=== PATIENT | female | born 1930 | race Two or more races ===

== ENCOUNTER 2018-10-01 13:31 | Inpatient (IN) | payer OTHER ==
[~2018-10-01] VITALS: Ht 157.5 cm; Wt 58.1 kg
[~2018-10-01 13:31] MED LIST: ATOR40TA68 PO; CALC600T24 PO; CARB1TAB47 PO; CHOL100062 PO; FER325 PO; HEPA500021 IJ; LOSA1TAB22 PO; PANT40TA4 PO; PROP10TA6 PO; SENN-120 PO; SERT50TA6 PO
[2018-10-01 15:30] VITALS: Ht 157.5 cm; Wt 58.1 kg
--- NOTE | 2018-10-01 15:59 | QN ---
Documentation Comment SEEN AND EXAMINED RUBI BAEZ MD Oct 01, 2018 15:59
[2018-10-01] MEDS ORDERED: NACL 0.9% 3 ML SYG IV SCH (16:00)
[2018-10-01] MEDS ORDERED: HYDROCODONE/APAP (5/325) TAB PO PRN (16:00)
[2018-10-01] MEDS ORDERED: ACETAMINOPHEN 325 MG TAB PO PRN (16:00)
[2018-10-01] MEDS ORDERED: ONDANSETRON 4 MG INJ IV PRN (16:00)
[2018-10-01] MEDS ORDERED: DOCUSATE SODIUM 100 MG CAP PO PRN (16:00)
[2018-10-01 16:07] VITALS: BP 119/57; PULSE 88; RESP 18
[2018-10-01] MEDS: CARBIDOPA/LEVODOPA (25/250) TAB PO SCH ×2 (17:00→22:45)
--- NOTE | 2018-10-01 18:59 | HP ---
DATE OF ADMISSION: 10/01/2018 REASON FOR ADMISSION: Transferred from [facility] due to insurance reasons. HISTORY OF PRESENT ILLNESS: This is an 88-year-old female with a past medical history of anemia, hypertension, history of Parkinson's disease who came into the [facility] on 09/27/2018 secondary to worsening abdominal distention and shortness of breath. According to the family the course had been progressive and had been continuous. The pain was present in the right upper quadrant. The patient had mild shortness of breath on exertion. The abdominal distention was getting worse and getting bigger. 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 There, the patient was afebrile. White count was 9.6, hemoglobin 10.2, platelet count of 415. UA was negative. The patient had BUN of 26, creatinine 1.5, calcium 9.3, total protein 6.2, albumin 3.4. UA was done that was negative. Chest x-ray showed left basilar atelectasis or infiltrate with possible pleural effusion. The patient received paracentesis on 09/27/2018 with removal of 4 liters and the patient also received thoracentesis on 09/29/2018 with removal of 1.3 liters. The patient had apparently CA 125 and CA 19 that were elevated. The patient was seen by oncology and the patient was transferred here due to insurance reasons for possible chemo PAST MEDICAL HISTORY: 1. Hypertension. 2. Hyperlipidemia. 3. Parkinson's disease. 4. Anemia. MEDICATIONS: Taking at home: 1. Atorvastatin 10. 2. Calcium carbonate 120 oral b.i.d. 3. Carbidopa/levodopa 1 cap p.o. t.i.d. 4. Cholecalciferol. 5. Iron sulfate. 6. Hydrochlorothiazide. 7. Losartan 12.5 and 50 that was started in [facility]. 8. Pantoprazole 20. 9. Propranolol 10 oral daily. 10. Sertraline 50. SOCIAL HISTORY: No history of smoking, alcohol or any drug use. Currently lives by herself in [place]. The patient is Urdu speaking. FAMILY HISTORY: No history of any cancer. REVIEW OF SYSTEMS: The patient complained of some abdominal distention and some left-sided chest pain after removal of fluid. Denied any headache, any blurry vision, any nausea, vomiting, diarrhea. Denied any hematemesis, any melena, any blood per rectum.PHYSICAL EXAMINATION: VITAL SIGNS: Temperature there 97.2, heart rate 75, respirations 18, blood pressure was 144/65, 91% to 92% on room air. GENERAL: The patient is awake, alert, oriented, does not appear to be in acute distress. NECK: Supple without lymphadenopathy. HEART: Regular rate and rhythm. LUNGS: Decreased breath sounds on the left base. ABDOMEN: Soft, distended, mild fluid wave. EXTREMITIES: There is no edema. NEUROLOGIC: Grossly intact motor and sensory examination. Alert, oriented. DIAGNOSTIC DATA: There, sodium was 137, potassium 3.5, chloride 101, bicarbonate 27, BUN of 22, creatinine came down to 1.1. White count 6.1, hemoglobin 9.4, platelet count 364. 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 ASSESSMENT AND PLAN: This is an 88-year-old female who presented with: 1. Ascites, status post ultrasound-guided paracentesis. 2. Pleural effusion, status post left-sided thoracentesis. 3. Likely new diagnosis of ovarian cancer as per some records. with ascites and pleural effusion with peritoneal carcinomatosis on CT scan 4. Microcytic anemia. 5. Questionable cirrhosis. may be due to ascites?? Per records there but i think its due to maligant ascites due to ovarian cancer 6 hx Parkinson 7 Hypercholestermia PLAN: At this period of time, the patient is here in medicine. Will continue the patient on home medications.Repeat Chest xray and abdominal US We will request all the extensive records from [facility] regarding the tumor markers, CAT scans since the patient only has partial records available. Dr. Guerin has been consulted for oncology consultation. Rest of the treatment will depend of the patient's hospitalization course. Dictated By: RUBI BAEZ RB/JENNIFER Conf#: [id number] DID#: [id number] CC: TEE TORRES MD;*EndCC* MTDD
[2018-10-01 19:27] VITALS: BP 125/60; PULSE 88; RESP 18
[2018-10-01] MEDS: ATORVASTATIN 10 MG TAB PO SCH (20:55)
[2018-10-01] MEDS: FERROUS SULFATE (EC) 325 MG TAB PO SCH (20:55)
[2018-10-01] MEDS: SENNA TAB PO SCH (20:55)
[2018-10-01] MEDS: SERTRALINE 50 MG TAB PO SCH (20:55)
[2018-10-01] MEDS ORDERED: HEPARIN 5,000 UNIT/0.5 ML VIAL SC SCH (22:00)
[2018-10-01] MEDS: CALCIUM CARBONATE 1.25 GM TAB PO SCH (22:44)
[2018-10-01] MEDS: HEPARIN 5,000 UNIT/1 ML VIAL SC SCH (22:47)
[2018-10-02 01:57] VITALS: BP 122/57; PULSE 80; RESP 16
[2018-10-02] MEDS: PANTOPRAZOLE (EC) 40 MG TAB PO SCH (05:40)
[2018-10-02] MEDS: HEPARIN 5,000 UNIT/1 ML VIAL SC SCH (05:42)
[2018-10-02] MEDS ORDERED: PANTOPRAZOLE (EC) 40 MG TAB PO SCH (06:00)
[2018-10-02 07:27] VITALS: BP 116/55; PULSE 80; RESP 19
[2018-10-02] MEDS: CARBIDOPA/LEVODOPA (25/250) TAB PO SCH ×3 (08:13→21:00)
[2018-10-02] MEDS: CALCIUM CARBONATE 1.25 GM TAB PO SCH ×2 (08:13→21:00)
[2018-10-02] MEDS: FERROUS SULFATE (EC) 325 MG TAB PO SCH (08:13)
[2018-10-02] MEDS: SENNA TAB PO SCH ×2 (08:13→21:00)
[2018-10-02] MEDS: CHOLECALCIFEROL 1,000 UNIT TAB PO SCH (08:13)
[2018-10-02] MEDS: PROPRANOLOL 10 MG TAB PO SCH (08:14)
[2018-10-02] MEDS ORDERED: LOSARTAN 50 MG TAB PO SCH (09:00)
[2018-10-02] MEDS ORDERED: HYDROCHLOROTHIAZIDE 12.5 MG CAP PO SCH (09:00)
[2018-10-02] MEDS ORDERED: MAGNESIUM SULFATE 4 GM/100 ML 100 ML IVPB ONE (12:00)
--- NOTE | 2018-10-02 12:40 | PN ---
Date/Time of Note Date/Time of Note DATE: 10/02/18 TIME: 12:36 Assessment/Plan VTE Prophylaxis Risk score (from Ns)>0 risk: 5 SCD applied (from Ns): Yes Pharmacological prophylaxis: NA/contraindicated Pharm contraindication: low risk/ambulating Lines/Catheters IV C[facility]ter Type [facility]from [facility] Urinary Cath still in place: No Assessment/Plan Assessment/Plan This is an 88-year-old female who presented with: 1. Ascites, status post ultrasound-guided paracentesis. 2. Pleural effusion, status post left-sided thoracentesis. 3. Likely new diagnosis of ovarian cancer as per some records. with elevated CA markers 4. Microcytic anemia. 5. hx parkinson 6 hypercholestermia 7 Hypomagnesemia Plan - fluid restriction - iv lasix - chest xray reviewed > will call pulm - will request all records from [facility] MG - possibel [facility] ju[facility]ino, hold fe and heparin, recheck Hb - dr henry to see patient today ?chemo Result Diagram: 10/02/18 0431 10/02/18 0431 Results 24hrs Laboratory Tests Test 10/01/18 16:48 10/02/18 04:31 10/02/18 08:48 Sodium Level 133 L 134 L Potassium Level 4.1 3.5 Chloride Level 95 L 97 Carbon Dioxide Level 31 31 Anion Gap 7 6 Blood Urea Nitrogen 13 12 Creatinine 0.68 0.63 Est Glomerular Filtrat Rate mL/min Glucose Level 144 115 Calcium Level 9.3 9.0 Total Bilirubin 0.3 Direct Bilirubin 0.00 Indirect Bilirubin 0.3 Aspartate Amino Transf (AST/SGOT) 21 Alanine Aminotransferase (ALT/SGPT) 13 Alkaline Phosphatase 61 Total Protein 6.0 L Albumin 3.0 L Globulin 3.00 Albumin/Globulin Ratio 1.00 Carcinoembryonic Antigen 0.9 CA 19-9 Antigen 16.0 CA 125 Antigen 1100.0 H White Blood Count 8.7 Red Blood Count 4.20 Hemoglobin 9.6 L Hematocrit 29.8 L Mean Corpuscular Volume 71.0 L Mean Corpuscular Hemoglobin 22.9 L Mean Corpuscular Hemoglobin Concent 32.2 Red Cell Distribution Width 15.2 H Platelet Count 386 Mean Platelet Volume 9.5 Immature Granulocytes % 0.700 H Neutrophils % 73.3 Lymphocytes % 11.6 L Monocytes % 11.7 H Eosinophils % 2.2 Basophils % 0.5 Nucleated Red Blood Cells % 0.0 Immature Granulocytes # 0.060 H Neutrophils # 6.4 Lymphocytes # 1.0 Monocytes # 1.0 H Eosinophils # 0.2 Basophils # 0.0 Nucleated Red Blood Cells # 0.0 Phosphorus Level 4.6 Magnesium Level 1.4 L Lab Scanned Report REFERENCE LAB Subjective 24 Hr Interval Summary Free Text/Dictation Gets little sob at times small black stool today Exam/Review of Systems Exam Vitals Vital Signs Date Temp Pulse Resp B/P (MAP) Pulse Ox O2 O2 Flow FiO2 Time Delivery Rate 10/02/18 98.3 80 19 116/55 96 Room Air 07:27 (75) Intake and Output 10/01/18 10/01/18 10/02/18 1515:00 23:00 07:00 IntakeIntake Total 120 ml 2400 ml BalanceBalance 120 ml 2400 ml Exam GENERAL: The patient is awake, alert, oriented, does not appear to be in acute distress. NECK: Supple without lymphadenopathy. HEART: Regular rate and rhythm. LUNGS: Decreased breath sounds on the left base. ABDOMEN: Soft, distended, mild fluid wave. EXTREMITIES: There is no edema. NEUROLOGIC: Grossly intact motor and sensory examination. Alert, oriented. Results Results 24hrs Laboratory Tests Test 10/01/18 16:48 10/02/18 04:31 10/02/18 08:48 Sodium Level 133 L 134 L Potassium Level 4.1 3.5 Chloride Level 95 L 97 Carbon Dioxide Level 31 31 Anion Gap 7 6 Blood Urea Nitrogen 13 12 Creatinine 0.68 0.63 Est Glomerular Filtrat Rate mL/min Glucose Level 144 115 Calcium Level 9.3 9.0 Total Bilirubin 0.3 Direct Bilirubin 0.00 Indirect Bilirubin 0.3 Aspartate Amino Transf (AST/SGOT) 21 Alanine Aminotransferase (ALT/SGPT) 13 Alkaline Phosphatase 61 Total Protein 6.0 L Albumin 3.0 L Globulin 3.00 Albumin/Globulin Ratio 1.00 Carcinoembryonic Antigen 0.9 CA 19-9 Antigen 16.0 CA 125 Antigen 1100.0 H White Blood Count 8.7 Red Blood Count 4.20 Hemoglobin 9.6 L Hematocrit 29.8 L Mean Corpuscular Volume 71.0 L Mean Corpuscular Hemoglobin 22.9 L Mean Corpuscular Hemoglobin Concent 32.2 Red Cell Distribution Width 15.2 H Platelet Count 386 Mean Platelet Volume 9.5 Immature Granulocytes % 0.700 H Neutrophils % 73.3 Lymphocytes % 11.6 L Monocytes % 11.7 H Eosinophils % 2.2 Basophils % 0.5 Nucleated Red Blood Cells % 0.0 Immature Granulocytes # 0.060 H Neutrophils # 6.4 Lymphocytes # 1.0 Monocytes # 1.0 H Eosinophils # 0.2 Basophils # 0.0 Nucleated Red Blood Cells # 0.0 Phosphorus Level 4.6 Magnesium Level 1.4 L Lab Scanned Report REFERENCE LAB Medications Medication Current Medications IV Flush (NS 3 ml) 3 ml PER PROTOCOL IV ; Start 10/01/18 at 16:00 Ondansetron HCl (Zofran Inj) 4 mg Q6H PRN IV NAUSEA/VOMITING; Start 10/01/18 at 16:00 Acetaminophen (Tylenol Tab) 650 mg Q6H PRN PO .PAIN 1-3 OR TEMP; Start 10/01/18 at 16:00 Acetaminophen/ Hydrocodone Bitart ([place] (5/325)) 1 tab Q6H PRN PO .MOD PAIN 4- 6; Start 10/01/18 at 16:00 Docusate Sodium (Colace) 100 mg Q12H PRN PO .CONSTIPATION; Start 10/01/18 at 16:00 Pantoprazole (Protonix Tab) 40 mg DAILY@06 PO Last administered on 10/02/18at 05:40; Admin Dose 40 MG; Start 10/02/18 at 06:00 Atorvastatin Calcium (Lipitor) 10 mg DAILY@21 PO Last administered on 10/01/18at 20:55; Admin Dose 10 MG; Start 10/01/18 at 21:00 Cholecalciferol (Vitamin D) 5,000 unit DAILY PO Last administered on 10/02/18at 08:13; Admin Dose 5,000 UNIT; Start 10/02/18 at 09:00 Propranolol HCl (Inderal) 10 mg DAILY PO Last administered on 10/02/18at 08:14; Admin Dose 10 MG; Start 10/02/18 at 09:00 Senna (Senokot) 1 tab BID PO Last administered on 10/02/18at 08:13; Admin Dose 1 TAB; Start 10/01/18 at 21:00 Sertraline HCl (Zoloft) 50 mg QHS PO Last administered on 10/01/18 20:55; Admin Dose 50 MG; Start 10/01/18 at 21:00 Calcium Carbonate (Oyster Shell Calcium) 1.25 gm BID PO Last administered on 10/02/18 08:13; Admin Dose 1.25 GM; Start 10/01/18 at 21:00 Carbidopa/Levodopa (Sinemet (25/ 250)) 1 tab TID PO Last administered on 10/02/18 08:13; Admin Dose 1 TAB; Start 10/01/18 at 17:00 Magnesium Sulfate 100 ml @ 25 mls/hr ONCE ONCE IVPB Last administered on 10/02/18 12:24; Admin Dose 25 MLS/HR; Start 10/02/18 at 12:00; Stop 10/02/18 at 15:59 Furosemide (Lasix) 20 mg DAILY@0600 IV ; Start 10/02/18 at 12:30 RUBI BAEZ MD Oct 02, 2018 12:40
[2018-10-02] MEDS: FUROSEMIDE 20 MG INJ IV SCH (13:08)
--- NOTE | 2018-10-02 13:59 | CONS ---
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 -I have spoke at length to the patient's [facility] ON[facility] who states that the pt was offered low dose chemotherapy at [facility] with the option of perusing optimal debulking surgery after 3 cycles of neoadjuvant chemotherapy -family to decide if they want to pursue chemotherapy -although she does have a fairly good functional status, I did explain that chemotherapy would be lifelong and the goal would be to control the disease since it is not a curative cancer #Microcytic anemia 2/2 iron deficiency -simmons tart IV iron #Pleural effusion -this is likely malignant and will keep reaccumulating if they do not start chemotherapy -if she decides against chemotherapy, I would recommend a Pleurx catheter to be placed Consultation Date/Type/Reason Admit Date/Time Oct 01, 2018 at 16:23 Date of Consultation: Oct 02, 2018 Type of Consult oncology Reason for Consultation ovarian cancer Requesting Provider: RUBI BAEZ MD Date/Time of Note DATE: 10/02/18 TIME: 11:32 Hx of Present Illness MS Mott is a pleasant 88 yo female with new diagnosis of metastatic ovarian cancer. She initially presented to [facility] last week with complaints of 4 weeks of abdominal pain and tightness as well as dyspnea on exertion. 09/27/2018 CT A/P reveals large ascites with peritoneal enhancement and peritoneal carcinomatosis. Also seen is a moderate left sided pleural effusion. Pt then underwent a paracentesis and left sided thoracentesis. Cytology presumably revealed ovarian cancer . Pt was offered chemotherapy at [facility] but was then transferred here for further workup. Constitutional: diaphoresis Eyes: no complaints ENT: no complaints Respiratory: cough, pleuritic pain, shortness of breath Cardiovascular: no complaints Gastrointestinal: decreased appetite Genitourinary: no complaints Musculoskeletal: back pain, bone/joint pain Skin: no complaints Neurologic: no complaints Lymphatic: no complaints Past Medical History 1. Hypertension. 2. Hyperlipidemia. 3. Parkinson's disease. 4. Anemia. Home Meds Reported Medications Losartan-Hydrochlorothiazide (Losartan-HCTZ) 50-12.5 Mg Tab, 1 TAB PO DAILY, TAB 10/01/18 Sertraline Hcl* (Sertraline Hcl*) 50 Mg Tablet, 50 MG PO QHS, #30 TAB 10/01/18 Sennosides* (Senna Lax*) 8.6 Mg Tablet, 1 TAB PO BID, TAB 10/01/18 Propranolol Hcl* (Propranolol Hcl*) 10 Mg Tablet, 10 MG PO DAILY, TAB 10/01/18 Pantoprazole* (Pantoprazole*) 40 Mg Tablet.dr, 40 MG PO DAILY, TAB 10/01/18 Heparin Sodium,Porcine/Pf (HEPARIN SOD 5,000 UNIT/ 0.5 ML) 5,000 Unit/0.5 Ml Vial, 5000 UNIT IJ Q8, VIAL 10/01/18 Ferrous Sulfate* (Ferrous Sulfate*) 325 Mg Tabec, 325 MG PO BID, TAB 10/01/18 Cholecalciferol* (Vitamin D3*) 1,000 Unit Tablet, 5000 UNIT PO DAILY, TAB 10/01/18 Carbidopa/Levodopa (CARBIDOPA-LEVO 25-250 MG ODT) 1 Each Tab.rapdis, 1 TAB PO TI D, #90 TAB 10/01/18 Calcium Carbonate* (Calcium Carbonate*) 600 MG Ca Tab, 500 MG PO BID, TAB 10/01/18 Atorvastatin* (Atorvastatin*) 40 Mg Tablet, 10 MG PO QHS, #30 TAB 10/01/18 Medications Current Medications IV Flush (NS 3 ml) 3 ml PER PROTOCOL IV ; Start 10/01/18 at 16:00 Ondansetron HCl (Zofran Inj) 4 mg Q6H PRN IV NAUSEA/VOMITING; Start 10/01/18 at 16:00 Acetaminophen (Tylenol Tab) 650 mg Q6H PRN PO .PAIN 1-3 OR TEMP; Start 10/01/18 at 16:00 Acetaminophen/ Hydrocodone Bitart ([place] (5/325)) 1 tab Q6H PRN PO .MOD PAIN 4- 6; Start 10/01/18 at 16:00 Docusate Sodium (Colace) 100 mg Q12H PRN PO .CONSTIPATION; Start 10/01/18 at 16:00 Pantoprazole (Protonix Tab) 40 mg DAILY@06 PO Last administered on 10/02/18at 05 :40; Admin Dose 40 MG; Start 10/02/18 at 06:00 Atorvastatin Calcium (Lipitor) 10 mg DAILY@21 PO Last administered on 8/5/19at 20:55; Admin Dose 10 MG; Start 10/01/18 at 21:00 Cholecalciferol (Vitamin D) 5,000 unit DAILY PO Last administered on 10/02/18 08:13; Admin Dose 5,000 UNIT; Start 10/02/18 at 09:00 Ferrous Sulfate (Ferrous Sulfate (Ec)) 325 mg BID PO Last administered on 10/02/18 08:13; Admin Dose 325 MG; Start 10/01/18 at 21:00 Propranolol HCl (Inderal) 10 mg DAILY PO Last administered on 10/02/18 08:14; Admin Dose 10 MG; Start 10/02/18 at 09:00 Senna (Senokot) 1 tab BID PO Last administered on 10/02/18 08:13; Admin Dose 1 TAB; Start 10/01/18 at 21:00 Sertraline HCl (Zoloft) 50 mg QHS PO Last administered on 10/01/18 20:55; Admin Dose 50 MG; Start 10/01/18 at 21:00 Calcium Carbonate (Oyster Shell Calcium) 1.25 gm BID PO Last administered on 10/02/18 08:13; Admin Dose 1.25 GM; Start 10/01/18 at 21:00 Carbidopa/Levodopa (Sinemet (25/ 250)) 1 tab TID PO Last administered on 10/02/18 at 08:13; Admin Dose 1 TAB; Start 10/01/18 at 17:00 Hydrochlorothiazide (Hydrochlorothiazide) 12.5 mg DAILY PO Last administered on 10/02/18 08:14; Admin Dose 12.5 MG; Start 10/02/18 at 09:00 Losartan Potassium (Cozaar) 50 mg DAILY PO Last administered on 10/02/18 08:14; Admin Dose 50 MG; Start 10/02/18 at 09:00 Heparin Sodium (Porcine) (Heparin (5000 Units/1ml)) 5,000 unit Q8 SC Last administered on 10/02/18 05:42; Admin Dose 5,000 UNIT; Start 10/01/18 at 22:30 Magnesium Sulfate 100 ml @ 25 mls/hr ONCE ONCE IVPB ; Start 10/02/18 at 12:00; Stop 10/02/18 at 15:59 Allergies: Coded Allergies: No Known Allergy (Unverified , 10/01/18) Past Surgical History Past Surgical Hx: no surgical history Family History Significant Family History: no pertinent family hx Social History Alcohol Use: none Smoking Status: Never smoker Drug Use: none Exam/Review of Systems Exam Vitals Vital Signs Date Temp Pulse Resp B/P (MAP) Pulse Ox O2 O2 Flow FiO2 Time Delivery Rate 10/02/18 98.3 80 19 116/55 96 Room Air 07:27 (75) Intake and Output 10/01/18 10/01/18 10/02/18 1515:00 23:00 07:00 IntakeIntake Total 120 ml 2400 ml BalanceBalance 120 ml 2400 ml Constitutional: alert, oriented, distress, frail Psych: anxiety, confusion, depression Head: normocephalic Eyes: nl conjunctiva ENMT: nl external ears & nose Neck: supple Respiratory: crackles/rales, diminished breath sounds Cardiovascular: regular rate and rhythm Gastrointestinal: soft, ascites Musculoskeletal: swelling Results Result Diagram: 10/02/18 0431 10/02/18 0431 Results 24hrs Laboratory Tests Test 10/01/18 16:48 10/02/18 04:31 10/02/18 08:48 Sodium Level 133 L 134 L Potassium Level 4.1 3.5 Chloride Level 95 L 97 Carbon Dioxide Level 31 31 Anion Gap 7 6 Blood Urea Nitrogen 13 12 Creatinine 0.68 0.63 Est Glomerular Filtrat Rate mL/min Glucose Level 144 115 Calcium Level 9.3 9.0 Total Bilirubin 0.3 Direct Bilirubin 0.00 Indirect Bilirubin 0.3 Aspartate Amino Transf (AST/SGOT) 21 Alanine Aminotransferase (ALT/SGPT) 13 Alkaline Phosphatase 61 Total Protein 6.0 L Albumin 3.0 L Globulin 3.00 Albumin/Globulin Ratio 1.00 Carcinoembryonic Antigen 0.9 CA 19-9 Antigen 16.0 CA 125 Antigen 1100.0 H White Blood Count 8.7 Red Blood Count 4.20 Hemoglobin 9.6 L Hematocrit 29.8 L Mean Corpuscular Volume 71.0 L Mean Corpuscular Hemoglobin 22.9 L Mean Corpuscular Hemoglobin Concent 32.2 Red Cell Distribution Width 15.2 H Platelet Count 386 Mean Platelet Volume 9.5 Immature Granulocytes % 0.700 H Neutrophils % 73.3 Lymphocytes % 11.6 L Monocytes % 11.7 H Eosinophils % 2.2 Basophils % 0.5 Nucleated Red Blood Cells % 0.0 Immature Granulocytes # 0.060 H Neutrophils # 6.4 Lymphocytes # 1.0 Monocytes # 1.0 H Eosinophils # 0.2 Basophils # 0.0 Nucleated Red Blood Cells # 0.0 Phosphorus Level 4.6 Magnesium Level 1.4 L Lab Scanned Report REFERENCE LAB Medications Medication Current Medications IV Flush (NS 3 ml) 3 ml PER PROTOCOL IV ; Start 10/01/18 at 16:00 Ondansetron HCl (Zofran Inj) 4 mg Q6H PRN IV NAUSEA/VOMITING; Start 10/01/18 at 16:00 Acetaminophen (Tylenol Tab) 650 mg Q6H PRN PO .PAIN 1-3 OR TEMP; Start 10/01/18 at 16:00 Acetaminophen/ Hydrocodone Bitart ([place] (5/325)) 1 tab Q6H PRN PO .MOD PAIN 4- 6; Start 10/01/18 at 16:00 Docusate Sodium (Colace) 100 mg Q12H PRN PO .CONSTIPATION; Start 10/01/18 at 16:00 Pantoprazole (Protonix Tab) 40 mg DAILY@06 PO Last administered on 10/02/18 05:40; Admin Dose 40 MG; Start 10/02/18 at 06:00 Atorvastatin Calcium (Lipitor) 10 mg DAILY@21 PO Last administered on 10/01/18 20:55; Admin Dose 10 MG; Start 10/01/18 at 21:00 Cholecalciferol (Vitamin D) 5,000 unit DAILY PO Last administered on 10/02/18 08:13; Admin Dose 5,000 UNIT; Start 10/02/18 at 09:00 Ferrous Sulfate (Ferrous Sulfate (Ec)) 325 mg BID PO Last administered on 10/02/18 08:13; Admin Dose 325 MG; Start 10/01/18 at 21:00 Propranolol HCl (Inderal) 10 mg DAILY PO Last administered on 10/02/18 08:14; Admin Dose 10 MG; Start 10/02/18 at 09:00 Senna (Senokot) 1 tab BID PO Last administered on 10/02/18 08:13; Admin Dose 1 TAB; Start 10/01/18 at 21:00 Sertraline HCl (Zoloft) 50 mg QHS PO Last administered on 10/01/18 20:55; Admin Dose 50 MG; Start 10/01/18 at 21:00 Calcium Carbonate (Oyster Shell Calcium) 1.25 gm BID PO Last administered on 10/02/18 08:13; Admin Dose 1.25 GM; Start 10/01/18 at 21:00 Carbidopa/Levodopa (Sinemet (25/ 250)) 1 tab TID PO Last administered on 10/02/18 08:13; Admin Dose 1 TAB; Start 10/01/18 at 17:00 Hydrochlorothiazide (Hydrochlorothiazide) 12.5 mg DAILY PO Last administered on 10/02/18 08:14; Admin Dose 12.5 MG; Start 10/02/18 at 09:00 Losartan Potassium (Cozaar) 50 mg DAILY PO Last administered on 10/02/18 08:14; Admin Dose 50 MG; Start 10/02/18 at 09:00 Heparin Sodium (Porcine) (Heparin (5000 Units/1ml)) 5,000 unit Q8 SC Last administered on 10/02/18at 05:42; Admin Dose 5,000 UNIT; Start 10/01/18 at 22:30 Magnesium Sulfate 100 ml @ 25 mls/hr ONCE ONCE IVPB ; Start 10/02/18 at 12:00; Stop 10/02/18 at 15:59 CLEVELAND GROSS M.D. Oct 02, 2018 11:52
[2018-10-02 14:00] VITALS: BP 94/57; PULSE 76; RESP 18
[2018-10-02 20:10] VITALS: BP 102/55; PULSE 84; RESP 18
[2018-10-02] MEDS: ATORVASTATIN 10 MG TAB PO SCH (21:00)
[2018-10-02] MEDS: SERTRALINE 50 MG TAB PO SCH (21:00)
[2018-10-03 01:32] VITALS: BP 111/52; PULSE 74; RESP 18
[2018-10-03] MEDS: FUROSEMIDE 20 MG INJ IV SCH (05:46)
[2018-10-03] MEDS: PANTOPRAZOLE (EC) 40 MG TAB PO SCH (05:46)
[2018-10-03 08:06] VITALS: BP 116/56; PULSE 76; RESP 18
[2018-10-03] MEDS: SENNA TAB PO SCH ×2 (09:14→21:12)
[2018-10-03] MEDS: CHOLECALCIFEROL 1,000 UNIT TAB PO SCH (09:14)
[2018-10-03] MEDS: CARBIDOPA/LEVODOPA (25/250) TAB PO SCH ×3 (09:14→21:11)
[2018-10-03] MEDS: CALCIUM CARBONATE 1.25 GM TAB PO SCH ×2 (09:14→21:11)
[2018-10-03] MEDS: PROPRANOLOL 10 MG TAB PO SCH (09:15)
--- NOTE | 2018-10-03 12:02 | PN ---
Date/Time of Note Date/Time of Note DATE: 10/03/18 TIME: 11:58 Assessment/Plan VTE Prophylaxis Risk score (from Ns)>0 risk: 5 SCD applied (from Nsg): Yes Pharmacological prophylaxis: NA/contraindicated Pharm contraindication: low risk/ambulating Lines/Catheters IV Catheter Type (from [facility]): Saline Lock Urinary Cath still in place: No Assessment/Plan Assessment/Plan This is an 88-year-old female who presented with: 1. Ascites, status post ultrasound-guided paracentesis. Now again reevaluated ascites 2. Pleural effusion, status post left-sided thoracentesis. 3. 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 Microcytic anemia. 5. hx parkinson 6 hypercholestermia 7 Hypomagnesemia Plan - fluid restriction - iv lasix - pUL CONSULT will see -We will again order for paracentesis -spoke to mio Mercado who is coming from [place] and will decide about further options after talking to Dr. henry today - GI/DVT prophylaxsis - dietary consult Result Diagram: 10/02/18 1540 10/02/18 0431 Results 24hrs Laboratory Tests Test 10/02/18 15:40 Hemoglobin 10.1 L Hematocrit 32.7 L Subjective 24 Hr Interval Summary Free Text/Dictation Abdominal distention. Exam/Review of Systems Exam Vitals Vital Signs Date Temp Pulse Resp B/P (MAP) Pulse Ox O2 O2 Flow FiO2 Time Delivery Rate 10/03/18 97.5 76 18 116/56 93 Room Air 08:06 (76) Intake and Output 10/02/18 10/02/18 10/03/18 1515:00 23:00 07:00 IntakeIntake Total 100 ml 300 ml BalanceBalance 100 ml 300 ml Exam GENERAL: The patient is awake, alert, oriented, does not appear to be in acute distress. NECK: Supple without lymphadenopathy. HEART: Regular rate and rhythm. LUNGS: Decreased breath sounds on the left base. ABDOMEN: Soft, distended, mild fluid wave.ASCITES+ EXTREMITIES: There is no edema. NEUROLOGIC: Grossly intact motor and sensory examination. Alert, oriented. Results Results 24hrs Laboratory Tests Test 10/02/18 15:40 Hemoglobin 10.1 L Hematocrit 32.7 L Medications Medication Current Medications IV Flush (NS 3 ml) 3 ml PER PROTOCOL IV ; Start 10/01/18 at 16:00 Ondansetron HCl (Zofran Inj) 4 mg Q6H PRN IV NAUSEA/VOMITING; Start 10/01/18 at 16:00 Acetaminophen (Tylenol Tab) 650 mg Q6H PRN PO .PAIN 1-3 OR TEMP; Start 10/01/18 at 16:00 Acetaminophen/ Hydrocodone Bitart ([place] (5/325)) 1 tab Q6H PRN PO .MOD PAIN 4- 6; Start 10/01/18 at 16:00 Docusate Sodium (Colace) 100 mg Q12H PRN PO .CONSTIPATION; Start 10/01/18 at 16:00 Pantoprazole (Protonix Tab) 40 mg DAILY@06 PO Last administered on 10/03/18 05:46; Admin Dose 40 MG; Start 10/02/18 at 06:00 Atorvastatin Calcium (Lipitor) 10 mg DAILY@21 PO Last administered on 10/02/18 21:00; Admin Dose 10 MG; Start 10/01/18 at 21:00 Cholecalciferol (Vitamin D) 5,000 unit DAILY PO Last administered on 10/03/18 09:14; Admin Dose 5,000 UNIT; Start 10/02/18 at 09:00 Propranolol HCl (Inderal) 10 mg DAILY PO Last administered on 10/03/18 09:15; Admin Dose 10 MG; Start 10/02/18 at 09:00 Senna (Senokot) 1 tab BID PO Last administered on 10/03/18 09:14; Admin Dose 1 TAB; Start 10/01/18 at 21:00 Sertraline HCl (Zoloft) 50 mg QHS PO Last administered on 10/02/18 21:00; Admin Dose 50 MG; Start 10/01/18 at 21:00 Calcium Carbonate (Oyster Shell Calcium) 1.25 gm BID PO Last administered on 10/03/18 09:14; Admin Dose 1.25 GM; Start 10/01/18 at 21:00 Carbidopa/Levodopa (Sinemet (25/ 250)) 1 tab TID PO Last administered on 10/03/18 09:14; Admin Dose 1 TAB; Start 10/01/18 at 17:00 Furosemide (Lasix) 20 mg DAILY@0600 IV Last administered on 10/03/18at 05:46; A dmin Dose 20 MG; Start 10/02/18 at 12:30 RUBI BAEZ MD Oct 03, 2018 12:02
--- NOTE | 2018-10-03 14:45 | CONS ---
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 will send for cytology #Microcytic anemia 2/2 iron deficiency -simmons tart IV iron #Pleural effusion -this is likely malignant and will keep reaccumulating if they do not start chemotherapy -if she decides against chemotherapy, I would recommend a Pleurx catheter to be placed Consultation Date/Type/Reason Admit Date/Time Oct 01, 2018 at 16:23 Initial Consult Date 10/02/18 Type of Consult oncology Reason for Consultation metastatic ovarian cancer Requesting Provider: RUBI BAEZ MD Date/Time of Note DATE: 10/03/18 TIME: 14:43 24 HR Interval Summary Free Text/Dictation pt still very short of breath. scheduled for thoracentesis today Exam/Review of Systems Exam Vitals Vital Signs Date Temp Pulse Resp B/P (MAP) Pulse Ox O2 O2 Flow FiO2 Time Delivery Rate 10/03/18 97.5 76 18 116/56 93 Room Air 08:06 (76) Intake and Output 10/02/18 10/02/18 10/03/18 1515:00 23:00 07:00 IntakeIntake Total 100 ml 300 ml BalanceBalance 100 ml 300 ml Constitutional: alert, oriented, distress, frail Psych: depression Eyes: nl conjunctiva ENMT: nl external ears & nose Neck: supple Respiratory: crackles/rales, diminished breath sounds, intercostal retraction, labored breathing Cardiovascular: regular rate and rhythm Gastrointestinal: soft, ascites Musculoskeletal: nl extremities to inspection Results Result Diagram: 10/02/18 1540 10/02/18 0431 Results 24hrs Laboratory Tests Test 10/02/18 15:40 Hemoglobin 10.1 L Hematocrit 32.7 L Medications Medication Current Medications IV Flush (NS 3 ml) 3 ml PER PROTOCOL IV ; Start 10/01/18 at 16:00 Ondansetron HCl (Zofran Inj) 4 mg Q6H PRN IV NAUSEA/VOMITING; Start 10/01/18 at 16:00 Acetaminophen (Tylenol Tab) 650 mg Q6H PRN PO .PAIN 1-3 OR TEMP; Start 10/01/18 at 16:00 Acetaminophen/ Hydrocodone Bitart ([place] (5/325)) 1 tab Q6H PRN PO .MOD PAIN 4- 6; Start 10/01/18 at 16:00 Docusate Sodium (Colace) 100 mg Q12H PRN PO .CONSTIPATION; Start 10/01/18 at 16:00 Pantoprazole (Protonix Tab) 40 mg DAILY@06 PO Last administered on 10/03/18at 05:46; Admin Dose 40 MG; Start 10/02/18 at 06:00 Atorvastatin Calcium (Lipitor) 10 mg DAILY@21 PO Last administered on 10/02/18at 21:00; Admin Dose 10 MG; Start 10/01/18 at 21:00 Cholecalciferol (Vitamin D) 5,000 unit DAILY PO Last administered on 10/03/18 09:14; Admin Dose 5,000 UNIT; Start 10/02/18 at 09:00 Propranolol HCl (Inderal) 10 mg DAILY PO Last administered on 10/03/18 09:15; Admin Dose 10 MG; Start 10/02/18 at 09:00 Senna (Senokot) 1 tab BID PO Last administered on 10/03/18at 09:14; Admin Dose 1 TAB; Start 10/01/18 at 21:00 Sertraline HCl (Zoloft) 50 mg QHS PO Last administered on 10/02/18 21:00; Admin Dose 50 MG; Start 10/01/18 at 21:00 Calcium Carbonate (Oyster Shell Calcium) 1.25 gm BID PO Last administered on 10/03/18 09:14; Admin Dose 1.25 GM; Start 10/01/18 at 21:00 Carbidopa/Levodopa (Sinemet (25/ 250)) 1 tab TID PO Last administered on 10/03/18at 13:17; Admin Dose 1 TAB; Start 10/01/18 at 17:00 Furosemide (Lasix) 20 mg DAILY@0600 IV Last administered on 10/03/18at 05:46; Admin Dose 20 MG; Start 10/02/18 at 12:30 CLEVELAND GROSS M.D. Oct 03, 2018 14:45
[2018-10-03 15:10] VITALS: BP 114/55; PULSE 81; RESP 18
--- NOTE | 2018-10-03 18:31 | CONS ---
DATE OF ADMISSION: 10/01/2018 DATE OF CONSULTATION: 10/03/2018 REASON FOR CONSULTATION: Shortness of breath. Thank you, Dr. Torres, for this consultation. HISTORY OF PRESENT ILLNESS: This is an unfortunate 88-year-old lady with history of Parkinson's dise ase, hypertension, hyperlipidemia, who presented to [facility] with abdominal pain and distent ion, found to have ascites with pleural effusion and peritoneal carcinomatosis. The patient was eval uated by Hematology/Oncology who recommended initiation of chemotherapy. The patient transferred to [facility] pending initiation. PAST MEDICAL HISTORY: As above. MEDICATIONS: Per chart. ALLERGIES: NONE. SOCIAL HISTORY: She is a nonsmoker, no alcohol, no history of drug use. FAMILY HISTORY: Noncontributory. SYSTEMS REVIEW: A 12-point review of systems was negative other than that mentioned above. PHYSICAL EXAMINATION: GENERAL: Well-nourished, well-developed lady, comfortable at rest, talking in full and complete sent ences. No respiratory distress. VITAL SIGNS: Temperature 98, pulse is 81, blood pressure 114/55, O2 saturation 94% on room air. NECK: Supple. No JVD or lymphadenopathy. CARDIAC: S1, S2, no added sounds or murmurs. CHEST: Diminished air entry bilaterally. ABDOMEN: Soft, nontender. No guarding or rebound. EXTREMITIES: Soft, no edema. NEUROLOGIC: Generalized weakness. No focal deficits. LABORATORY DATA: White count 8.7, hemoglobin 9.6, platelets 386. BUN 12, creatinine 0.63. INR 0.95 . DIAGNOSTIC DATA: Chest x-ray was reviewed, showed small left effusion with atelectasis. IMPRESSION AND PLAN: 1. Peritoneal carcinomatosis. 2. Status post pleural effusion. 3. Metastatic ovarian cancer per cytology. 4. History of Parkinson's disease. PLAN: 1. No need for thoracentesis at present. 2. Case was discussed with hematology/oncology regarding initiation of chemotherapy. 3. Status post paracentesis today. Dictated By: LEIGHANN DIAS MD SV/JENNIFER Conf#: [id number] DID#: [id number] CC: TEE TORRES MD;*EndCC*
[2018-10-03 19:20] VITALS: BP 100/47; PULSE 82; RESP 18
[2018-10-03] MEDS: SERTRALINE 50 MG TAB PO SCH (21:11)
[2018-10-03] MEDS: ATORVASTATIN 10 MG TAB PO SCH (21:11)
[2018-10-04 02:10] VITALS: BP 127/60; PULSE 75; RESP 18
[2018-10-04] MEDS: PANTOPRAZOLE (EC) 40 MG TAB PO SCH (05:41)
[2018-10-04] MEDS: FUROSEMIDE 20 MG INJ IV SCH (05:43)
[2018-10-04 05:46] VITALS: BP 127/59; PULSE 77
[2018-10-04 07:38] VITALS: BP 133/60; PULSE 84; RESP 18
[2018-10-04] MEDS: CALCIUM CARBONATE 1.25 GM TAB PO SCH ×2 (09:00→20:33)
[2018-10-04] MEDS: CHOLECALCIFEROL 1,000 UNIT TAB PO SCH (09:00)
[2018-10-04] MEDS: CARBIDOPA/LEVODOPA (25/250) TAB PO SCH ×3 (09:00→20:35)
[2018-10-04] MEDS: SENNA TAB PO SCH ×2 (09:00→20:34)
[2018-10-04] MEDS: PROPRANOLOL 10 MG TAB PO SCH (09:01)
--- NOTE | 2018-10-04 09:37 | PN ---
Date/Time of Note Date/Time of Note DATE: 10/04/18 TIME: 09:37 Assessment/Plan VTE Prophylaxis Risk score (from [facility])>0 risk: 6 SCD applied (from [facility]): Yes Pharmacological prophylaxis: NA/contraindicated Pharm contraindication: low risk/ambulating Lines/Catheters IV Catheter Type (from [facility]): Saline Lock Urinary Cath still in place: No Assessment/Plan Assessment/Plan s is an 88-year-old female who presented with: 1. Ascites, status post ultrasound-guided paracentesis. Now again reevaluated ascites 2. Pleural effusion, status post left-sided thoracentesis. 3. 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 Microcytic anemia. 5. hx parkinson 6 hypercholestermia 7 Hypomagnesemia Plan - fluid restriction - iv lasix - pUL CONSULT will see, no need of thoracentesis -We will again order for paracentesis> not enough fluid to drain -chemo per Dr Guerin in [place] - GI/DVT prophylaxsis - dietary consult Result Diagram: 10/04/18 0452 10/04/18 0452 Results 24hrs Laboratory Tests Test 10/03/18 14:08 10/04/18 04:52 Prothrombin Time 12.8 Prothrombin Time Ratio 1.0 INR International Normalized Ratio 0.95 White Blood Count 7.7 Red Blood Count 4.30 Hemoglobin 9.6 L Hematocrit 31.2 L Mean Corpuscular Volume 72.6 L Mean Corpuscular Hemoglobin 22.3 L Mean Corpuscular Hemoglobin Concent 30.8 L Red Cell Distribution Width 15.6 H Platelet Count 407 Mean Platelet Volume 9.3 Immature Granulocytes % 0.900 H Neutrophils % 72.9 Lymphocytes % 11.9 L Monocytes % 11.7 H Eosinophils % 2.2 Basophils % 0.4 Nucleated Red Blood Cells % 0.0 Immature Granulocytes # 0.070 H Neutrophils # 5.6 Lymphocytes # 0.9 Monocytes # 0.9 Eosinophils # 0.2 Basophils # 0.0 Nucleated Red Blood Cells # 0.0 Sodium Level 132 L Potassium Level 3.5 Chloride Level 94 L Carbon Dioxide Level 33 H Anion Gap 5 Blood Urea Nitrogen 20 Creatinine 0.83 Est Glomerular Filtrat Rate mL/min Glucose Level 108 Calcium Level 8.6 Phosphorus Level 4.7 Magnesium Level 1.8 Subjective 24 Hr Interval Summary Free Text/Dictation spoke to The telemarketing sales representative Rogelio at bedside she denies any shortness of breath any abdominal pain Exam/Review of Systems Exam Vitals Vital Signs Date Temp Pulse Resp B/P (MAP) Pulse Ox O2 O2 Flow FiO2 Time Delivery Rate 10/04/18 98.3 84 18 133/60 99 Room Air 07:38 (84) Intake and Output 10/03/18 10/03/18 10/04/18 1414:59 22:59 06:59 IntakeIntake Total 480 ml 290 ml BalanceBalance 480 ml 290 ml Exam xam GENERAL: The patient is awake, alert, oriented, does not appear to be in acute distress. NECK: Supple without lymphadenopathy. HEART: Regular rate and rhythm. LUNGS: Decreased breath sounds on the left base. ABDOMEN: Soft, distended, mild fluid wave.ASCITES+ EXTREMITIES: There is no edema. NEUROLOGIC: Grossly intact motor and sensory examination. Alert, oriented. Results Results 24hrs Laboratory Tests Test 10/03/18 14:08 10/04/18 04:52 Prothrombin Time 12.8 Prothrombin Time Ratio 1.0 INR International Normalized Ratio 0.95 White Blood Count 7.7 Red Blood Count 4.30 Hemoglobin 9.6 L Hematocrit 31.2 L Mean Corpuscular Volume 72.6 L Mean Corpuscular Hemoglobin 22.3 L Mean Corpuscular Hemoglobin Concent 30.8 L Red Cell Distribution Width 15.6 H Platelet Count 407 Mean Platelet Volume 9.3 Immature Granulocytes % 0.900 H Neutrophils % 72.9 Lymphocytes % 11.9 L Monocytes % 11.7 H Eosinophils % 2.2 Basophils % 0.4 Nucleated Red Blood Cells % 0.0 Immature Granulocytes # 0.070 H Neutrophils # 5.6 Lymphocytes # 0.9 Monocytes # 0.9 Eosinophils # 0.2 Basophils # 0.0 Nucleated Red Blood Cells # 0.0 Sodium Level 132 L Potassium Level 3.5 Chloride Level 94 L Carbon Dioxide Level 33 H Anion Gap 5 Blood Urea Nitrogen 20 Creatinine 0.83 Est Glomerular Filtrat Rate mL/min Glucose Level 108 Calcium Level 8.6 Phosphorus Level 4.7 Magnesium Level 1.8 Medications Medication Current Medications IV Flush (NS 3 ml) 3 ml PER PROTOCOL IV ; Start 10/01/18 at 16:00 Ondansetron HCl (Zofran Inj) 4 mg Q6H PRN IV NAUSEA/VOMITING; Start 10/01/18 at 16:00 Acetaminophen (Tylenol Tab) 650 mg Q6H PRN PO .PAIN 1-3 OR TEMP; Start 10/01/18 at 16:00 Acetaminophen/ Hydrocodone Bitart ([place] (5/325)) 1 tab Q6H PRN PO .MOD PAIN 4- 6; Start 10/01/18 at 16:00 Docusate Sodium (Colace) 100 mg Q12H PRN PO .CONSTIPATION; Start 10/01/18 at 16:00 Pantoprazole (Protonix Tab) 40 mg DAILY@06 PO Last administered on 10/04/18 05:41; Admin Dose 40 MG; Start 10/02/18 at 06:00 Atorvastatin Calcium (Lipitor) 10 mg DAILY@21 PO Last administered on 10/03/18 21:11; Admin Dose 10 MG; Start 10/01/18 at 21:00 Cholecalciferol (Vitamin D) 5,000 unit DAILY PO Last administered on 10/04/18 09:00; Admin Dose 5,000 UNIT; Start 10/02/18 at 09:00 Propranolol HCl (Inderal) 10 mg DAILY PO Last administered on 10/04/18 09:01; Admin Dose 10 MG; Start 10/02/18 at 09:00 Senna (Senokot) 1 tab BID PO Last administered on 10/04/18 09:00; Admin Dose 1 TAB; Start 10/01/18 at 21:00 Sertraline HCl (Zoloft) 50 mg QHS PO Last administered on 10/03/18 21:11; Admin Dose 50 MG; Start 10/01/18 at 21:00 Calcium Carbonate (Oyster Shell Calcium) 1.25 gm BID PO Last administered on 10/04/18 09:00; Admin Dose 1.25 GM; Start 10/01/18 at 21:00 Carbidopa/Levodopa (Sinemet (25/ 250)) 1 tab TID PO Last administered on 10/04/18 09:00; Admin Dose 1 TAB; Start 10/01/18 at 17:00 Furosemide (Lasix) 20 mg DAILY@0600 IV Last administered on 10/04/18 05:43; Admin Dose 20 MG; Start 10/02/18 at 12:30 RUBI BAEZ MD Oct 04, 2018 09:37
--- NOTE | 2018-10-04 11:05 | CONS ---
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 This cannot be done as an outpatient and needs to be started urgently as an in patient. IF we wait to do it as an out patient she will get readmitted for recurrent effusions -although she does have a fairly good functional status, I did explain that chemotherapy would be lifelong and the goal would be to control the disease since it is not a curative cancer #Microcytic anemia 2/2 iron deficiency -simmons tart IV iron #Pleural effusion -this is likely malignant and will keep reaccumulating if they do not start chemotherapy -if she decides against chemotherapy, I would recommend a Pleurx catheter to be placed Consultation Date/Type/Reason Admit Date/Time Oct 01, 2018 at 16:23 Initial Consult Date 10/02/18 Type of Consult oncology Reason for Consultation stage IV ovarian cancer Requesting Provider: RUBI BAEZ MD Date/Time of Note DATE: 10/04/18 TIME: 10:57 24 HR Interval Summary Free Text/Dictation pt is currently comfortable. spoke with family and patient this morning and they do want to try chemotherapy in attempts to control the recurrent pleural effusions Exam/Review of Systems Exam Vitals Vital Signs Date Temp Pulse Resp B/P (MAP) Pulse Ox O2 O2 Flow FiO2 Time Delivery Rate 10/04/18 98.3 84 18 133/60 99 Room Air 07:38 (84) Intake and Output 10/03/18 10/03/18 10/04/18 1515:00 23:00 07:00 IntakeIntake Total 480 ml 290 ml BalanceBalance 480 ml 290 ml Constitutional: alert, oriented, frail Psych: anxiety, depression Head: normocephalic Eyes: nl conjunctiva ENMT: nl external ears & nose Neck: supple Respiratory: diminished breath sounds Cardiovascular: regular rate and rhythm Gastrointestinal: soft, ascites Musculoskeletal: nl extremities to inspection Results Result Diagram: 10/04/18 0452 10/04/18 0452 Results 24hrs Laboratory Tests Test 10/03/18 14:08 10/04/18 04:52 Prothrombin Time 12.8 Prothrombin Time Ratio 1.0 INR International Normalized Ratio 0.95 White Blood Count 7.7 Red Blood Count 4.30 Hemoglobin 9.6 L Hematocrit 31.2 L Mean Corpuscular Volume 72.6 L Mean Corpuscular Hemoglobin 22.3 L Mean Corpuscular Hemoglobin Concent 30.8 L Red Cell Distribution Width 15.6 H Platelet Count 407 Mean Platelet Volume 9.3 Immature Granulocytes % 0.900 H Neutrophils % 72.9 Lymphocytes % 11.9 L Monocytes % 11.7 H Eosinophils % 2.2 Basophils % 0.4 Nucleated Red Blood Cells % 0.0 Immature Granulocytes # 0.070 H Neutrophils # 5.6 Lymphocytes # 0.9 Monocytes # 0.9 Eosinophils # 0.2 Basophils # 0.0 Nucleated Red Blood Cells # 0.0 Sodium Level 132 L Potassium Level 3.5 Chloride Level 94 L Carbon Dioxide Level 33 H Anion Gap 5 Blood Urea Nitrogen 20 Creatinine 0.83 Est Glomerular Filtrat Rate mL/min Glucose Level 108 Calcium Level 8.6 Phosphorus Level 4.7 Magnesium Level 1.8 Medications Medication Current Medications IV Flush (NS 3 ml) 3 ml PER PROTOCOL IV ; Start 10/01/18 at 16:00 Ondansetron HCl (Zofran Inj) 4 mg Q6H PRN IV NAUSEA/VOMITING; Start 10/01/18 at 16:00 Acetaminophen (Tylenol Tab) 650 mg Q6H PRN PO .PAIN 1-3 OR TEMP; Start 10/01/18 at 16:00 Acetaminophen/ Hydrocodone Bitart ([place] (5/325)) 1 tab Q6H PRN PO .MOD PAIN 4- 6; Start 10/01/18 at 16:00 Docusate Sodium (Colace) 100 mg Q12H PRN PO .CONSTIPATION; Start 10/01/18 at 16:00 Pantoprazole (Protonix Tab) 40 mg DAILY@06 PO Last administered on 10/04/18at 05:41; Admin Dose 40 MG; Start 10/02/18 at 06:00 Atorvastatin Calcium (Lipitor) 10 mg DAILY@21 PO Last administered on 10/03/18 21:11; Admin Dose 10 MG; Start 10/01/18 at 21:00 Cholecalciferol (Vitamin D) 5,000 unit DAILY PO Last administered on 10/04/18 09:00; Admin Dose 5,000 UNIT; Start 10/02/18 at 09:00 Propranolol HCl (Inderal) 10 mg DAILY PO Last administered on 10/04/18 09:01; Admin Dose 10 MG; Start 10/02/18 at 09:00 Senna (Senokot) 1 tab BID PO Last administered on 10/04/18 09:00; Admin Dose 1 TAB; Start 10/01/18 at 21:00 Sertraline HCl (Zoloft) 50 mg QHS PO Last administered on 10/03/18 21:11; Admin Dose 50 MG; Start 10/01/18 at 21:00 Calcium Carbonate (Oyster Shell Calcium) 1.25 gm BID PO Last administered on 10/04/18 09:00; Admin Dose 1.25 GM; Start 10/01/18 at 21:00 Carbidopa/Levodopa (Sinemet (25/ 250)) 1 tab TID PO Last administered on 10/04/18 09:00; Admin Dose 1 TAB; Start 10/01/18 at 17:00 Furosemide (Lasix) 20 mg DAILY@0600 IV Last administered on 10/04/18 05:43; Admin Dose 20 MG; Start 10/02/18 at 12:30 CLEVELAND GROSS M.D. Oct 04, 2018 11:05
--- NOTE | 2018-10-04 12:21 | CONS ---
Consult Date/Type/Reason Admit Date/Time Oct 01, 2018 at 16:23 Initial Consult Date 10/02/18 Type of Consult Pulmonary Requesting Provider: RUBI BAEZ MD Date/Time of Note DATE: 10/04/18 TIME: 12:20 Subjective Patient appears comfortable today no respiratory distress Objective Vital Signs Date Temp Pulse Resp B/P (MAP) Pulse Ox O2 O2 Flow FiO2 Time Delivery Rate 10/04/18 98.3 84 18 133/60 99 Room Air 07:38 (84) Intake and Output 10/03/18 10/03/18 10/04/18 1515:00 23:00 07:00 IntakeIntake Total 480 ml 290 ml BalanceBalance 480 ml 290 ml Exam GENERAL: Elderly appearing lady comfortable at rest no acute distress VITAL SIGNS: per chart NECK: Supple. No JVD or lymphadenopathy. CARDIAC EXAM: S1, S2. No added sounds or murmurs. CHEST: Diminished air entry right base. ABDOMEN: Soft, nontender. No guarding or rebound. EXTREMITIES: No cyanosis, clubbing or edema. NEUROLOGIC: Generalized weakness. No focal deficits. Results/Medications Result Diagram: 10/04/18 0452 10/04/18 0452 Results 24 hrs Laboratory Tests Test 10/03/18 14:08 10/04/18 04:52 Prothrombin Time 12.8 Prothrombin Time Ratio 1.0 INR International Normalized Ratio 0.95 White Blood Count 7.7 Red Blood Count 4.30 Hemoglobin 9.6 L Hematocrit 31.2 L Mean Corpuscular Volume 72.6 L Mean Corpuscular Hemoglobin 22.3 L Mean Corpuscular Hemoglobin Concent 30.8 L Red Cell Distribution Width 15.6 H Platelet Count 407 Mean Platelet Volume 9.3 Immature Granulocytes % 0.900 H Neutrophils % 72.9 Lymphocytes % 11.9 L Monocytes % 11.7 H Eosinophils % 2.2 Basophils % 0.4 Nucleated Red Blood Cells % 0.0 Immature Granulocytes # 0.070 H Neutrophils # 5.6 Lymphocytes # 0.9 Monocytes # 0.9 Eosinophils # 0.2 Basophils # 0.0 Nucleated Red Blood Cells # 0.0 Sodium Level 132 L Potassium Level 3.5 Chloride Level 94 L Carbon Dioxide Level 33 H Anion Gap 5 Blood Urea Nitrogen 20 Creatinine 0.83 Est Glomerular Filtrat Rate mL/min Glucose Level 108 Calcium Level 8.6 Phosphorus Level 4.7 Magnesium Level 1.8 Medications Current Medications IV Flush (NS 3 ml) 3 ml PER PROTOCOL IV ; Start 10/01/18 at 16:00 Ondansetron HCl (Zofran Inj) 4 mg Q6H PRN IV NAUSEA/VOMITING; Start 10/01/18 at 16:00 Acetaminophen (Tylenol Tab) 650 mg Q6H PRN PO .PAIN 1-3 OR TEMP; Start 10/01/18 at 16:00 Acetaminophen/ Hydrocodone Bitart ([place] (5/325)) 1 tab Q6H PRN PO .MOD PAIN 4- 6; Start 10/01/18 at 16:00 Docusate Sodium (Colace) 100 mg Q12H PRN PO .CONSTIPATION; Start 10/01/18 at 16:00 Pantoprazole (Protonix Tab) 40 mg DAILY@06 PO Last administered on 10/04/18 05:41; Admin Dose 40 MG; Start 10/02/18 at 06:00 Atorvastatin Calcium (Lipitor) 10 mg DAILY@21 PO Last administered on 10/03/18 21:11; Admin Dose 10 MG; Start 10/01/18 at 21:00 Cholecalciferol (Vitamin D) 5,000 unit DAILY PO Last administered on 10/04/18 09:00; Admin Dose 5,000 UNIT; Start 10/02/18 at 09:00 Propranolol HCl (Inderal) 10 mg DAILY PO Last administered on 10/04/18 09:01; Admin Dose 10 MG; Start 10/02/18 at 09:00 Senna (Senokot) 1 tab BID PO Last administered on 10/04/18 09:00; Admin Dose 1 TAB; Start 10/01/18 at 21:00 Sertraline HCl (Zoloft) 50 mg QHS PO Last administered on 10/03/18 21:11; Admin Dose 50 MG; Start 10/01/18 at 21:00 Calcium Carbonate (Oyster Shell Calcium) 1.25 gm BID PO Last administered on 10/04/18 09:00; Admin Dose 1.25 GM; Start 10/01/18 at 21:00 Carbidopa/Levodopa (Sinemet (25/ 250)) 1 tab TID PO Last administered on 10/04/18 09:00; Admin Dose 1 TAB; Start 10/01/18 at 17:00 Furosemide (Lasix) 20 mg DAILY@0600 IV Last administered on 10/04/18at 05:43; Admin Dose 20 MG; Start 10/02/18 at 12:30 Assessment/Plan Hospital Course (Demo Recall) IMPRESSION AND PLAN: 1. Peritoneal carcinomatosis. 2. Status post pleural effusion. 3. Metastatic ovarian cancer per cytology. 4. History of Parkinson's disease. PLAN: 1. No need for thoracentesis at present. Will repeat chest x-ray in few days 2. Case was discussed with hematology/oncology regarding initiation of chemotherapy. 3. Status post paracentesis await fluid studies. LEIGHANN DIAS MD, [facility] Oct 04, 2018 12:21
[2018-10-04] MEDS: ATORVASTATIN 10 MG TAB PO SCH (20:33)
[2018-10-04] MEDS: SERTRALINE 50 MG TAB PO SCH (20:35)
[2018-10-04 20:39] VITALS: BP 110/53; PULSE 88; RESP 20
[2018-10-05 02:20] VITALS: BP 129/59; PULSE 74; RESP 20
[2018-10-05] MEDS: PANTOPRAZOLE (EC) 40 MG TAB PO SCH (05:41)
[2018-10-05] MEDS: FUROSEMIDE 20 MG INJ IV SCH (05:45)
[2018-10-05 05:50] VITALS: BP 120/58; PULSE 73
[2018-10-05 07:34] VITALS: BP 121/59; PULSE 79; RESP 20
[2018-10-05] MEDS: CARBIDOPA/LEVODOPA (25/250) TAB PO SCH ×3 (08:25→20:28)
[2018-10-05] MEDS: CALCIUM CARBONATE 1.25 GM TAB PO SCH ×2 (08:25→20:27)
[2018-10-05] MEDS: SENNA TAB PO SCH ×2 (08:25→20:27)
[2018-10-05] MEDS: PROPRANOLOL 10 MG TAB PO SCH (08:25)
[2018-10-05] MEDS: CHOLECALCIFEROL 1,000 UNIT TAB PO SCH (08:25)
--- NOTE | 2018-10-05 08:38 | CONS ---
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 -I have spoke at length to the patient's [employer]ING[employer] INSPECTOR ONC who states that the pt was offered low dose chemotherapy at [facility] with the option of perusing optimal debulking surgery after 3 cycles of neoadjuvant chemotherapy -I have had an extensive discussion with the family and patient who at this time do NOT want to try chemotherapy -she wishes to go home at this time #Recurrent pleural effusion -currently there is not enough fluid to tap -will defer to primary team whether or not a CT chest is indicated at this time #Microcytic anemia 2/2 iron deficiency -simmons tart IV iron #Pleural effusion -this is likely malignant and will keep reaccumulating if they do not start chemotherapy -if she decides against chemotherapy, I would recommend a Pleurx catheter to be placed Consultation Date/Type/Reason Admit Date/Time Oct 01, 2018 at 16:23 Initial Consult Date 10/02/18 Type of Consult oncology Reason for Consultation metastatic ovarian cancer Requesting Provider: RUBI BAEZ MD Date/Time of Note DATE: 10/05/18 TIME: 08:36 24 HR Interval Summary Free Text/Dictation pt and family now do not want chemotherapy. family wants a CT scan done and to drain more fluid Exam/Review of Systems Exam Vitals Vital Signs Date Temp Pulse Resp B/P (MAP) Pulse Ox O2 O2 Flow FiO2 Time Delivery Rate 10/05/18 98.4 79 20 121/59 93 Room Air 07:34 (79) Intake and Output 10/04/18 10/04/18 10/05/18 1515:00 23:00 07:00 IntakeIntake Total 1040 ml BalanceBalance 1040 ml Constitutional: alert, oriented, frail Psych: anxiety, depression Head: normocephalic Eyes: nl conjunctiva ENMT: nl external ears & nose Neck: supple Respiratory: crackles/rales, diminished breath sounds, labored breathing Cardiovascular: regular rate and rhythm Gastrointestinal: soft Musculoskeletal: nl extremities to inspection Results Result Diagram: 10/05/18 0437 10/05/18 0437 Results 24hrs Laboratory Tests Test 10/05/18 04:37 White Blood Count 8.5 Red Blood Count 4.42 Hemoglobin 9.9 L Hematocrit 31.8 L Mean Corpuscular Volume 71.9 L Mean Corpuscular Hemoglobin 22.4 L Mean Corpuscular Hemoglobin Concent 31.1 L Red Cell Distribution Width 15.5 H Platelet Count 427 H Mean Platelet Volume 9.6 Immature Granulocytes % 1.100 H Neutrophils % 72.1 Lymphocytes % 11.1 L Monocytes % 13.0 H Eosinophils % 2.2 Basophils % 0.5 Nucleated Red Blood Cells % 0.0 Immature Granulocytes # 0.090 H Neutrophils # 6.1 Lymphocytes # 0.9 Monocytes # 1.1 H Eosinophils # 0.2 Basophils # 0.0 Nucleated Red Blood Cells # 0.0 Sodium Level 133 L Potassium Level 3.8 Chloride Level 93 L Carbon Dioxide Level 33 H Anion Gap 7 Blood Urea Nitrogen 21 H Creatinine 0.90 Est Glomerular Filtrat Rate mL/min Glucose Level 108 Calcium Level 9.2 Medications Medication Current Medications IV Flush (NS 3 ml) 3 ml PER PROTOCOL IV ; Start 10/01/18 at 16:00 Ondansetron HCl (Zofran Inj) 4 mg Q6H PRN IV NAUSEA/VOMITING; Start 10/01/18 at 16:00 Acetaminophen (Tylenol Tab) 650 mg Q6H PRN PO .PAIN 1-3 OR TEMP; Start 10/01/18 at 16:00 Acetaminophen/ Hydrocodone Bitart ([place] (5/325)) 1 tab Q6H PRN PO .MOD PAIN 4- 6; Start 10/01/18 at 16:00 Docusate Sodium (Colace) 100 mg Q12H PRN PO .CONSTIPATION; Start 10/01/18 at 16:00 Pantoprazole (Protonix Tab) 40 mg DAILY@06 PO Last administered on 10/05/18at 05:41; Admin Dose 40 MG; Start 10/02/18 at 06:00 Atorvastatin Calcium (Lipitor) 10 mg DAILY@21 PO Last administered on 10/04/18at 20:33; Admin Dose 10 MG; Start 10/01/18 at 21:00 Cholecalciferol (Vitamin D) 5,000 unit DAILY PO Last administered on 10/05/18 08:25; Admin Dose 5,000 UNIT; Start 10/02/18 at 09:00 Propranolol HCl (Inderal) 10 mg DAILY PO Last administered on 10/05/18at 08:25; Admin Dose 10 MG; Start 10/02/18 at 09:00 Senna (Senokot) 1 tab BID PO Last administered on 10/05/18 08:25; Admin Dose 1 TAB; Start 10/01/18 at 21:00 Sertraline HCl (Zoloft) 50 mg QHS PO Last administered on 10/04/18 20:35; Admin Dose 50 MG; Start 10/01/18 at 21:00 Calcium Carbonate (Oyster Shell Calcium) 1.25 gm BID PO Last administered on 08:25; Admin Dose 1.25 GM; Start 10/01/18 at 21:00 Carbidopa/Levodopa (Sinemet (25/ 250)) 1 tab TID PO Last administered on 10/05/18 08:25; Admin Dose 1 TAB; Start 10/01/18 at 17:00 Furosemide (Lasix) 20 mg DAILY@0600 IV Last administered on 10/05/18 05:45; Admin Dose 20 MG; Start 10/02/18 at 12:30 Enoxaparin Sodium (Lovenox) 30 mg DAILY SC Last administered on 10/05/18 08:27; Admin Dose 30 MG; Start 10/05/18 at 09:00 CLEVELAND GROSS M.D. Oct 05, 2018 08:38
[2018-10-05] MEDS ORDERED: ENOXAPARIN 30 MG/0.3 ML SYG SC SCH (09:00)
--- NOTE | 2018-10-05 09:18 | PN ---
Date/Time of Note Date/Time of Note DATE: 10/05/18 TIME: 09:13 Assessment/Plan VTE Prophylaxis Risk score (from [facility])>0 risk: 6 SCD applied (from Ns): Yes Pharmacological prophylaxis: NA/contraindicated Pharm contraindication: low risk/ambulating Lines/Catheters IV Catheter Type (from [facility]): [place] Urinary Cath still in place: No Assessment/Plan Assessment/Plan 88-year-old female who presented with: 1. Ascites, status post ultrasound-guided paracentesis. Now again reevaluated ascites 2. Pleural effusion, status post left-sided thoracentesis. 3. 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 Microcytic anemia. 5. hx parkinson 6 hypercholestermia 7 Hypomagnesemia Plan - fluid restriction - iv lasix -Check again to see the patient has pleural fluid on will need thoracentesis and if patient has ascites will need paracentesis, to the family Rogelio and García at bedside they do not want to continue with chemo for now -We will get an auth to see Dr. joyce on as an outpatient - GI/DVT prophylaxsis - dietary consult Thoracentesis/paracentesis today if can be done and then patient family wants to take the patient home and follow-up with Dr. Guerin as an outpatient and decide if she will need chemo or not Result Diagram: 10/05/18 0437 10/05/18 0437 Results 24hrs Laboratory Tests Test 10/05/18 04:37 White Blood Count 8.5 Red Blood Count 4.42 Hemoglobin 9.9 L Hematocrit 31.8 L Mean Corpuscular Volume 71.9 L Mean Corpuscular Hemoglobin 22.4 L Mean Corpuscular Hemoglobin Concent 31.1 L Red Cell Distribution Width 15.5 H Platelet Count 427 H Mean Platelet Volume 9.6 Immature Granulocytes % 1.100 H Neutrophils % 72.1 Lymphocytes % 11.1 L Monocytes % 13.0 H Eosinophils % 2.2 Basophils % 0.5 Nucleated Red Blood Cells % 0.0 Immature Granulocytes # 0.090 H Neutrophils # 6.1 Lymphocytes # 0.9 Monocytes # 1.1 H Eosinophils # 0.2 Basophils # 0.0 Nucleated Red Blood Cells # 0.0 Sodium Level 133 L Potassium Level 3.8 Chloride Level 93 L Carbon Dioxide Level 33 H Anion Gap 7 Blood Urea Nitrogen 21 H Creatinine 0.90 Est Glomerular Filtrat Rate mL/min Glucose Level 108 Calcium Level 9.2 Subjective 24 Hr Interval Summary Free Text/Dictation To Earnestine at bedside they have been refusing chemo currently Exam/Review of Systems Exam Vitals Vital Signs Date Temp Pulse Resp B/P (MAP) Pulse Ox O2 O2 Flow FiO2 Time Delivery Rate 10/05/18 98.4 79 20 121/59 93 Room Air 07:34 (79) Intake and Output 10/04/18 10/04/18 10/05/18 1515:00 23:00 07:00 IntakeIntake Total 1040 ml BalanceBalance 1040 ml Exam ENERAL: The patient is awake, alert, oriented, does not appear to be in acute distress. NECK: Supple without lymphadenopathy. HEART: Regular rate and rhythm. LUNGS: Decreased breath sounds on the left base. ABDOMEN: Soft, distended, mild fluid wave.ASCITES+ EXTREMITIES: There is no edema. NEUROLOGIC: Grossly intact motor and sensory examination. Alert, oriented. Results Results 24hrs Laboratory Tests Test 10/05/18 04:37 White Blood Count 8.5 Red Blood Count 4.42 Hemoglobin 9.9 L Hematocrit 31.8 L Mean Corpuscular Volume 71.9 L Mean Corpuscular Hemoglobin 22.4 L Mean Corpuscular Hemoglobin Concent 31.1 L Red Cell Distribution Width 15.5 H Platelet Count 427 H Mean Platelet Volume 9.6 Immature Granulocytes % 1.100 H Neutrophils % 72.1 Lymphocytes % 11.1 L Monocytes % 13.0 H Eosinophils % 2.2 Basophils % 0.5 Nucleated Red Blood Cells % 0.0 Immature Granulocytes # 0.090 H Neutrophils # 6.1 Lymphocytes # 0.9 Monocytes # 1.1 H Eosinophils # 0.2 Basophils # 0.0 Nucleated Red Blood Cells # 0.0 Sodium Level 133 L Potassium Level 3.8 Chloride Level 93 L Carbon Dioxide Level 33 H Anion Gap 7 Blood Urea Nitrogen 21 H Creatinine 0.90 Est Glomerular Filtrat Rate mL/min Glucose Level 108 Calcium Level 9.2 Medications Medication Current Medications IV Flush (NS 3 ml) 3 ml PER PROTOCOL IV ; Start 10/01/18 at 16:00 Ondansetron HCl (Zofran Inj) 4 mg Q6H PRN IV NAUSEA/VOMITING; Start 10/01/18 at 16:00 Acetaminophen (Tylenol Tab) 650 mg Q6H PRN PO .PAIN 1-3 OR TEMP; Start 10/01/18 at 16:00 Acetaminophen/ Hydrocodone Bitart ([place] (5/325)) 1 tab Q6H PRN PO .MOD PAIN 4- 6; Start 10/01/18 at 16:00 Docusate Sodium (Colace) 100 mg Q12H PRN PO .CONSTIPATION; Start 10/01/18 at 16:00 Pantoprazole (Protonix Tab) 40 mg DAILY@06 PO Last administered on 10/05/18 05:41; Admin Dose 40 MG; Start 10/02/18 at 06:00 Atorvastatin Calcium (Lipitor) 10 mg DAILY@21 PO Last administered on 10/04/18 20:33; Admin Dose 10 MG; Start 10/01/18 at 21:00 Cholecalciferol (Vitamin D) 5,000 unit DAILY PO Last administered on 10/05/18 08:25; Admin Dose 5,000 UNIT; Start 10/02/18 at 09:00 Propranolol HCl (Inderal) 10 mg DAILY PO Last administered on 10/05/18 08:25; Admin Dose 10 MG; Start 10/02/18 at 09:00 Senna (Senokot) 1 tab BID PO Last administered on 10/05/18 08:25; Admin Dose 1 TAB; Start 10/01/18 at 21:00 Sertraline HCl (Zoloft) 50 mg QHS PO Last administered on 10/04/18 20:35; Admin Dose 50 MG; Start 10/01/18 at 21:00 Calcium Carbonate (Oyster Shell Calcium) 1.25 gm BID PO Last administered on 10/05/18 08:25; Admin Dose 1.25 GM; Start 10/01/18 at 21:00 Carbidopa/Levodopa (Sinemet (25/ 250)) 1 tab TID PO Last administered on 10/05/18 08:25; Admin Dose 1 TAB; Start 10/01/18 at 17:00 Furosemide (Lasix) 20 mg DAILY@0600 IV Last administered on 10/05/18 05:45; Admin Dose 20 MG; Start 10/02/18 at 12:30 Enoxaparin Sodium (Lovenox) 30 mg DAILY SC Last administered on 10/05/18at 08:27; Admin Dose 30 MG; Start 10/05/18 at 09:00 RUBI BAEZ MD Oct 05, 2018 09:18
[2018-10-05 20:14] VITALS: BP 124/60; PULSE 77; RESP 20
[2018-10-05] MEDS: SERTRALINE 50 MG TAB PO SCH (20:28)
[2018-10-05] MEDS: ATORVASTATIN 10 MG TAB PO SCH (20:28)
[2018-10-06] MEDS: FUROSEMIDE 20 MG INJ IV SCH (06:24)
[2018-10-06] MEDS: PANTOPRAZOLE (EC) 40 MG TAB PO SCH (06:24)
[2018-10-06 07:42] VITALS: BP 131/59; PULSE 78; RESP 18
[2018-10-06] MEDS: PROPRANOLOL 10 MG TAB PO SCH (09:59)
[2018-10-06] MEDS: CARBIDOPA/LEVODOPA (25/250) TAB PO SCH (09:59)
--- NOTE | 2018-10-06 12:03 | CONS ---
Consult Date/Type/Reason Admit Date/Time Oct 01, 2018 at 16:23 Initial Consult Date 10/02/18 Type of Consult Pulmonary Requesting Provider: RUBI BAEZ MD Date/Time of Note DATE: 10/06/18 TIME: 12:02 Subjective Patient comfortable this morning no respiratory distress. Scheduled for paracentesis and thoracentesis. Objective Vital Signs Date Temp Pulse Resp B/P (MAP) Pulse Ox O2 O2 Flow FiO2 Time Delivery Rate 10/06/18 98.3 78 18 131/59 99 Room Air 07:42 (83) Intake and Output 10/05/18 10/05/18 10/06/18 1515:00 23:00 07:00 IntakeIntake Total 300 ml 240 ml 200 ml BalanceBalance 300 ml 240 ml 200 ml Exam GENERAL: Elderly appearing lady comfortable at rest no acute distress VITAL SIGNS: per chart NECK: Supple. No JVD or lymphadenopathy. CARDIAC EXAM: S1, S2. No added sounds or murmurs. CHEST: Diminished air entry right base. ABDOMEN: Soft, nontender. No guarding or rebound. EXTREMITIES: No cyanosis, clubbing or edema. NEUROLOGIC: Generalized weakness. No focal deficits. Results/Medications Result Diagram: 10/05/18 0437 10/05/18 043 Medications Current Medications IV Flush (NS 3 ml) 3 ml PER PROTOCOL IV ; Start 10/01/18 at 16:00 Ondansetron HCl (Zofran Inj) 4 mg Q6H PRN IV NAUSEA/VOMITING; Start 10/01/18 at 16:00 Acetaminophen (Tylenol Tab) 650 mg Q6H PRN PO .PAIN 1-3 OR TEMP; Start 10/01/18 at 16:00 Acetaminophen/ Hydrocodone Bitart ([place] (5/325)) 1 tab Q6H PRN PO .MOD PAIN 4- 6; Start 10/01/18 at 16:00 Docusate Sodium (Colace) 100 mg Q12H PRN PO .CONSTIPATION; Start 10/01/18 at 16:00 Pantoprazole (Protonix Tab) 40 mg DAILY@06 PO Last administered on 10/06/18at 06:24; Admin Dose 40 MG; Start 10/02/18 at 06:00 Atorvastatin Calcium (Lipitor) 10 mg DAILY@21 PO Last administered on 10/05/18at 20:28; Admin Dose 10 MG; Start 10/01/18 at 21:00 Cholecalciferol (Vitamin D) 5,000 unit DAILY PO Last administered on 10/05/18 08:25; Admin Dose 5,000 UNIT; Start 10/02/18 at 09:00 Propranolol HCl (Inderal) 10 mg DAILY PO Last administered on 10/06/18 09:59; Admin Dose 10 MG; Start 10/02/18 at 09:00 Senna (Senokot) 1 tab BID PO Last administered on 10/05/18 20:27; Admin Dose 1 TAB; Start 10/01/18 at 21:00 Sertraline HCl (Zoloft) 50 mg QHS PO Last administered on 10/05/18 20:28; Admin Dose 50 MG; Start 10/01/18 at 21:00 Calcium Carbonate (Oyster Shell Calcium) 1.25 gm BID PO Last administered on 10/05/18 20:27; Admin Dose 1.25 GM; Start 10/01/18 at 21:00 Carbidopa/Levodopa (Sinemet (25/ 250)) 1 tab TID PO Last administered on 10/06/18 09:59; Admin Dose 1 TAB; Start 10/01/18 at 17:00 Furosemide (Lasix) 20 mg DAILY@0600 IV Last administered on 10/06/18 06:24; Admin Dose 20 MG; Start 10/02/18 at 12:30 Assessment/Plan Hospital Course (Demo Recall) IMPRESSION AND PLAN: 1. Peritoneal carcinomatosis. 2. Status post pleural effusion. 3. Metastatic ovarian cancer per cytology. 4. History of Parkinson's disease. PLAN: 1. Thoracentesis today if significant pleural effusion 2. Case was discussed with hematology/oncology regarding initiation of chemotherapy. 3. Repeat paracentesis. LEIGHANN DIAS MD, [facility] Oct 06, 2018 12:03
[2018-10-06] MEDS ORDERED: LIDOCAINE 1% (MPF) 5 ML VIAL ONE (12:20)
--- NOTE | 2018-10-06 12:47 | DS ---
Date/Time of Note Date/Time of Note DATE: 10/06/18 TIME: 12:45 Discharge Summary Admission/Discharge Info Admit Date/Time Oct 01, 2018 at 16:23 Discharge Date/Time Discharge Diagnosis ovarian cancer with metastatic disease Patient Condition: Stable Consults Dr Benoit, oncology,dr. Wilson Procedures thoracentesis and paracentesis 10/06/2018 Hospital Course This is an 88-year-old female with a past medical history of anemia, hypert ension, history of Parkinson's disease who came into the [facility] on 09/27/2018 secondary to worsening abdominal distention and shortness of breath. According to the family member, the course had been progressive and had been continuous. The pain was present in the right upper quadrant. The patient had mild shortness of breath on exertion. The abdominal distention was getting worse and getting bigger. The patient had a CAT scan of the abdomen there that showed ascites, possible nodular peritoneal carcinomatosis. There, the patient was afebrile. White count was 9.6, hemoglobin 10.2, platelet count of 415. UA was negative. The patient had BUN of 26, creatinine 1.5, calcium 9.3, total protein 6.2, albumin 3.4. UA was done that was negative. Chest x- ray showed left basilar atelectasis or infiltrate with possible pleural effusion. The patient received paracentesis on 09/27/2018 with removal of 4 liters and the patient also received thoracentesis on 09/29/2018 with removal of 1.3 liters. The patient had apparently CA 125 and CA 19 that were elevated. The patient was seen by oncology and the patient was transferred here due to insurance reasons for possible chemo. PAST MEDICAL HISTORY: 1. Hypertension. 2. Hyperlipidemia. 3. Parkinson's disease. 4. Anemia. MEDICATIONS: Taking at home: 1. Atorvastatin 10. 2. Calcium carbonate 120 oral b.i.d. 3. Carbidopa/levodopa 1 cap p.o. t.i.d. 4. Cholecalciferol. 5. Iron sulfate. 6. Hydrochlorothiazide. 7. Losartan 12.5 and 50 that was started in [facility]. 8. Pantoprazole 20. 9. Propranolol 10 oral daily. 10. Sertraline 50. During hospitalization patient was seen by numerous specialists. Dr. Benoit was an oncology consult. We followed her recommendations. She reported metastatic ovarian cancer, she reviewed cytology from [facility]. 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 She spoke at length to the patient's TRANSACTION ADVISORY SERVICES MANAGER ONC who states that the pt was offered low dose chemotherapy at [facility] with the option of perusing optimal debulking surgery after 3 cycles of neoadjuvant chemotherapy but family decline chemotherapy. Dr Benoit explained that chemotherapy would be lifelong and the goal would be to control the disease since it is not a curative cancer. Pt has microcytic anemia, secondary to iron deficiency, she was started on IV iron. Pt has pleural effusion, that is likely malignant and will keep reaccumulating if there is no chemotherapy.On 10/06/2018 thoracentesis was performed and was removed 1.6 L of fluids. There recommended a Pleurx catheter to be placed, family refused. Pt pain was controlled. Patient is clinically improved, her SOB is decreased. Patient was able to tolerate regular diet and does not require an additional oxygenation. Plan of care was discussed with Dr. Escobar/Dr. Franklin. In stable condition patient was discharged home. Patient was instructed to continue designated medications. Patient was instructed to see primary care provider in 1 week, oncology 1-2 week and was provided with home health services. All questions were answered and all problems were addressed. Home Meds Active Scripts Ferrous Sulfate* (Ferrous Sulfate*) 325 Mg Tabec, 325 MG PO BID for 30 Days, TAB Prov:WILLARD ESCALONA NP 10/06/18 Reported Medications Sertraline Hcl* (Sertraline Hcl*) 50 Mg Tablet, 50 MG PO QHS, #30 TAB 10/01/18 Sennosides* (Senna Lax*) 8.6 Mg Tablet, 1 TAB PO BID, TAB 10/01/18 Propranolol Hcl* (Propranolol Hcl*) 10 Mg Tablet, 10 MG PO DAILY, TAB 10/01/18 Pantoprazole* (Pantoprazole*) 40 Mg Tablet.dr, 40 MG PO DAILY, TAB 10/01/18 Cholecalciferol* (Vitamin D3*) 1,000 Unit Tablet, 5000 UNIT PO DAILY, TAB 10/01/18 Carbidopa/Levodopa (CARBIDOPA-LEVO 25-250 MG ODT) 1 Each Tab.rapdis, 1 TAB PO TID, #90 TAB 10/01/18 Calcium Carbonate* (Calcium Carbonate*) 600 MG Ca Tab, 500 MG PO BID, TAB 10/01/18 Atorvastatin* (Atorvastatin*) 40 Mg Tablet, 10 MG PO QHS, #30 TAB 10/01/18 Discontinued Reported Medications Losartan-Hydrochlorothiazide (Losartan-HCTZ) 50-12.5 Mg Tab, 1 TAB PO DAILY, TAB 10/01/18 Heparin Sodium,Porcine/Pf (HEPARIN SOD 5,000 UNIT/ 0.5 ML) 5,000 Unit/0.5 Ml Vial, 5000 UNIT IJ Q8, VIAL 10/01/18 Follow-up Plan PCP 1 week, dr Benoit oncology 2 weeks approved for [facility] Primary Care Provider Not On Staff Doctor Time spent on discharge: < 30 minutes WILLARD ESCALONA NP Oct 06, 2018 12:47
--- NOTE | 2018-10-06 12:52 | PDOCDIS ---
Discharge Instructions DIAGNOSIS Discharge Diagnosis metastatic disease CONDITION [id number] Patient Condition: [id number] Stable ACTIVITY: [id number] Activity Restrictions: [id number] Rest between Activity Avoid heavy lifting FOLLOW UP/APPOINTMENTS Follow-up Plan PCP 1 week, dr Guerin oncology 2 weeks HH to visit WILLARD ESCALONA NP Oct 06, 2018 12:52
--- NOTE | 2018-10-06 13:10 | CONS ---
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 -I have spoke at length to the patient's [employer] ONC who states that the pt was offered low dose chemotherapy at [facility] with the option of perusing optimal debulking surgery after 3 cycles of neoadjuvant chemotherapy -I have had an extensive discussion with the family and patient who at this time do NOT want to try chemotherapy -she wishes to go home at this time #Recurrent pleural effusion -currently there is not enough fluid to tap -will defer to primary team whether or not a CT chest is indicated at this time #Microcytic anemia 2/2 iron deficiency -on IV iron #Pleural effusion -this is likely malignant and will keep reaccumulating if they do not start chemotherapy -if she decides against chemotherapy, Dr Guerin would recommend a Pleurx catheter to be placed. Anyway patient son refused chemo Patient seen in collaboration with Dr Guerin/eh staff Consultation Date/Type/Reason Admit Date/Time Oct 01, 2018 at 16:23 Initial Consult Date 10/02/18 Type of Consult Hematology/Oncology Reason for Consultation Metastatic ovarian cancer Requesting Provider: RUBI BAEZ MD Date/Time of Note DATE: 10/06/18 TIME: 13:09 24 HR Interval Summary Free Text/Dictation having lunch; transfer to SNF today no events last night son at bed side- all Qs answered Patient to FU at Dr Guerin clinic dw staff Constitutional: requiring IVF Detailed Summary Eyes: no complaints ENT: no complaints Respiratory: no complaints Cardiovascular: no complaints Gastrointestinal: no complaints Genitourinary: no complaints Musculoskeletal: other (general weksness) Skin: no complaints Neurologic: no complaints Endocrine: no complaints Psychological: nl mood/affect Immunologic: no complaints Exam/Review of Systems Exam Vitals Vital Signs Date Temp Pulse Resp B/P (MAP) Pulse Ox O2 O2 Flow FiO2 Time Delivery Rate 10/06/18 98.3 78 18 131/59 99 Room Air 07:42 (83) Intake and Output 10/05/18 10/05/18 10/06/18 1515:00 23:00 07:00 IntakeIntake Total 300 ml 240 ml 200 ml BalanceBalance 300 ml 240 ml 200 ml Constitutional: alert, well developed Psych: nl mood/affect Head: atraumatic Eyes: nl lids, nl sclera ENMT: nl external ears & nose Neck: non-tender Respiratory: clear to auscultation Cardiovascular: nl pulses, other (s1s2) Gastrointestinal: soft, non-tender Musculoskeletal: muscle weakness Extremities: normal pulses Neurological: nl speech, other (alert/reponsive) Skin: other (no skin rash noted) Lymph: nontender Results Result Diagram: 10/05/1843610/05/18436 Medications Medication Current Medications IV Flush (NS 3 ml) 3 ml PER PROTOCOL IV ; Start 10/01/18 at 16:00 Ondansetron HCl (Zofran Inj) 4 mg Q6H PRN IV NAUSEA/VOMITING; Start 10/01/18 at 16:00 Acetaminophen (Tylenol Tab) 650 mg Q6H PRN PO .PAIN 1-3 OR TEMP; Start 10/01/18 at 16:00 Acetaminophen/ Hydrocodone Bitart ([place] (5/325)) 1 tab Q6H PRN PO .MOD PAIN 4- 6; Start 10/01/18 at 16:00 Docusate Sodium (Colace) 100 mg Q12H PRN PO .CONSTIPATION; Start 10/01/18 at 16:00 Pantoprazole (Protonix Tab) 40 mg DAILY@06 PO Last administered on 10/06/18 06:24; Admin Dose 40 MG; Start 10/02/18 at 06:00 Atorvastatin Calcium (Lipitor) 10 mg DAILY@21 PO Last administered on 10/05/18 20:28; Admin Dose 10 MG; Start 10/01/18 at 21:00 Cholecalciferol (Vitamin D) 5,000 unit DAILY PO Last administered on 10/05/18 08:25; Admin Dose 5,000 UNIT; Start 10/02/18 at 09:00 Propranolol HCl (Inderal) 10 mg DAILY PO Last administered on 10/06/18 09:59; Admin Dose 10 MG; Start 10/02/18 at 09:00 Senna (Senokot) 1 tab BID PO Last administered on 10/05/18 20:27; Admin Dose 1 TAB; Start 10/01/18 at 21:00 Sertraline HCl (Zoloft) 50 mg QHS PO Last administered on 10/05/18 20:28; Admin Dose 50 MG; Start 10/01/18 at 21:00 Calcium Carbonate ([place] Calcium) 1.25 gm BID PO Last administered on 10/05/18at 20:27; Admin Dose 1.25 GM; Start 10/01/18 at 21:00 Carbidopa/Levodopa (Sinemet (25/ 250)) 1 tab TID PO Last administered on 10/06/18at 09:59; Admin Dose 1 TAB; Start 10/01/18 at 17:00 Furosemide (Lasix) 20 mg DAILY@0600 IV Last administered on 10/06/18at 06:24; Admin Dose 20 MG; Start 10/02/18 at 12:30 CRISTAL CUEVAS Oct 06, 2018 13:10
== END 2018-10-06 14:15 | disposition home health service (06) | DRG 755 ==
LOC: INTOOBSV 15:35 → MS1 15:35 → OBSVTOIN 16:23
PROVIDERS: ADMIT Internal Medicine Nephrology; ATTEND Internal Medicine Nephrology
PROC: 0W9B3ZZ Drainage of Left Pleural Cavity, Percutaneous Approach (ICD-10-PCS; principal; 2018-10-06)
PROC: 0W9G3ZZ Drainage of Peritoneal Cavity, Percutaneous Approach (ICD-10-PCS; 2018-10-06)
DX: C56.9 Malignant neoplasm of unspecified ovary (principal); R18.8 Other ascites; C78.6 Secondary malignant neoplasm of retroperitoneum and peritoneum; J91.0 Malignant pleural effusion; G20 Parkinson's disease; E83.42 Hypomagnesemia; I10 Essential (primary) hypertension; E78.5 Hyperlipidemia, unspecified; F41.9 Anxiety disorder, unspecified; F32.9 Major depressive disorder, single episode, unspecified; D50.9 Iron deficiency anemia, unspecified
CPT/HCPCS: 71045; 76604; 76705; 76942; 80048; 80053; 82378; 83735; 84100; 85014; 85018; 85025; 85610; 86300; 86301; 86304; 88104; 88305; 88341; 88342; 99217; G0378; J1644; J1650; J1940

== ENCOUNTER 2018-10-08 22:36 | Emergency (ER) | payer OTHER ==
[~2018-10-08] VITALS: Ht 154.9 cm; Wt 65.9 kg
[~2018-10-08 22:36] MED LIST changes: -HEPA500021 IJ; -LOSA1TAB22 PO
[2018-10-08 22:37] VITALS: Ht 154.9 cm; Wt 65.9 kg
[2018-10-08] MEDS ORDERED: SOD CHLORIDE 0.9% 1,000 ML IV STA (22:59)
[2018-10-09] MEDS ORDERED: HYDROCODONE/APAP (10/325) TAB PO ONE (00:30)
--- NOTE | 2018-10-09 00:53 | ERD ---
ER Documentation Chief Complaint Chief Complaint STATES SBP IN 80'S AT HOME AND FEELING WEAK; ST4 OVARIAN CA; NOT HOSPICE HPI This is a very pleasant 80-year-old female states her blood pressure was 80s and was feeling weak. Patient has stage IV ovarian cancer and family such as meeting them over the past 2 days. They just wanted patient to be fluid hydrated and have a pelvic x-ray which she slipped and fell yesterday. No head trauma. No loss of conscious. No acute focal neurological complaints. ROS All systems reviewed and are negative except as per history of present illness. Medications Home Meds Active Scripts Ferrous Sulfate* (Ferrous Sulfate*) 325 Mg Tabec, 325 MG PO BID for 30 Days, TAB Prov:WILLARD ESCALONA [employer] HELPER 10/06/18 Reported Medications Sertraline Hcl* (Sertraline Hcl*) 50 Mg Tablet, 50 MG PO QHS, #30 TAB 10/01/18 Sennosides* (Senna Lax*) 8.6 Mg Tablet, 1 TAB PO BID, TAB 10/01/18 Propranolol Hcl* (Propranolol Hcl*) 10 Mg Tablet, 10 MG PO DAILY, TAB 10/01/18 Pantoprazole* (Pantoprazole*) 40 Mg Tablet.dr, 40 MG PO DAILY, TAB 10/01/18 Cholecalciferol* (Vitamin D3*) 1,000 Unit Tablet, 5000 UNIT PO DAILY, TAB 10/01/18 Carbidopa/Levodopa (CARBIDOPA-LEVO 25-250 MG ODT) 1 Each Tab.rapdis, 1 TAB PO TID, #90 TAB 10/01/18 Calcium Carbonate* (Calcium Carbonate*) 600 MG Ca Tab, 500 MG PO BID, TAB 10/01/18 Atorvastatin* (Atorvastatin*) 40 Mg Tablet, 10 MG PO QHS, #30 TAB 10/01/18 Discontinued Reported Medications Losartan-Hydrochlorothiazide (Losartan-HCTZ) 50-12.5 Mg Tab, 1 TAB PO DAILY, TAB 10/01/18 Heparin Sodium,Porcine/Pf (HEPARIN SOD 5,000 UNIT/ 0.5 ML) 5,000 Unit/0.5 Ml Vial, 5000 UNIT IJ Q8, VIAL 10/01/18 Allergies Allergies: Coded Allergies: No Known Allergy (Unverified , 10/01/18) PMhx/Soc History of Surgery: No Anesthesia Reaction: No Hx Neurological Disorder: No Hx Respiratory Disorders: No Hx Cardiac Disorders: Yes (HTN) Hx Psychiatric Problems: No Hx Miscellaneous Medical Probl: Yes (S4 ovarian CA) Hx Alcohol Use: No Hx Substance Use: No Hx Tobacco Use: No Smoking Status: Never smoker Physical Exam Vitals Vital Signs Date Temp Pulse Resp B/P (MAP) Pulse Ox O2 O2 Flow FiO2 Time Delivery Rate 10/08/18 97.3 81 20 111/52 97 22:37 (71) Physical Exam Const: No acute distress Head: Atraumatic Eyes: Normal Conjunctiva ENT: Normal External Ears, Nose and Mouth. Neck: Full range of motion. No meningismus. Resp: Clear to auscultation bilaterally Cardio: Regular rate and rhythm, no murmurs Abd: Soft, non tender, non distended. Normal bowel sounds Skin: No petechiae or rashes Back: No midline or flank tenderness Ext: No cyanosis, or edema Neur: Awake and alert Psych: Normal Mood and Affect Result Diagram: 10/08/18 2325 10/08/18 2325 Results 24 hrs Laboratory Tests Test 10/08/18 23:25 White Blood Count 11.1 10^3/ul Red Blood Count 4.45 10^6/ul Hemoglobin 10.1 g/dl Hematocrit 32.0 % Mean Corpuscular Volume 71.9 fl Mean Corpuscular Hemoglobin 22.7 pg Mean Corpuscular Hemoglobin Concent 31.6 g/dl Red Cell Distribution Width 15.0 % Platelet Count 454 10^3/UL Mean Platelet Volume 9.1 fl Immature Granulocytes % 0.900 % Neutrophils % 80.4 % Lymphocytes % 8.1 % Monocytes % 8.8 % Eosinophils % 1.6 % Basophils % 0.2 % Nucleated Red Blood Cells % 0.2 /100WBC Immature Granulocytes # 0.100 10^3/ul Neutrophils # 9.0 10^3/ul Lymphocytes # 0.9 10^3/ul Monocytes # 1.0 10^3/ul Eosinophils # 0.2 10^3/ul Basophils # 0.0 10^3/ul Nucleated Red Blood Cells # 0.0 10^3/ul Sodium Level 124 mmol/L Potassium Level 3.4 mmol/L Chloride Level 86 mmol/L Carbon Dioxide Level 28 mmol/L Anion Gap 10 Blood Urea Nitrogen 38 mg/dl Creatinine 2.42 mg/dl Est Glomerular Filtrat Rate mL/min mL/min Glucose Level 142 mg/dl Calcium Level 8.4 mg/dl Total Bilirubin 0.2 mg/dl Direct Bilirubin 0.00 mg/dl Indirect Bilirubin 0.2 mg/dl Aspartate Amino Transf (AST/SGOT) 22 IU/L Alanine Aminotransferase (ALT/SGPT) 8 IU/L Alkaline Phosphatase 74 IU/L Troponin I 0.024 ng/ml B-Type Natriuretic Peptide 1560 PG/ML Total Protein 6.3 g/dl Albumin 3.2 g/dl Globulin 3.10 g/dl Albumin/Globulin Ratio 1.03 Current Medications Medications Dose Sig/Daniele Start Time Status Last (Trade) Ordered Route PRN Stop Time Admin Dose Reason Admin Sodium 1,000 ml @ Q1H STAT 10/08/18 DC 10/08/18 Chloride 1,000 mls/hr IV 22:59 23:32 10/08/18 23:58 1 tab ONCE ONCE 10/09/18 DC 10/09/18 Acetaminophen PO 00:30 00:25 / 10/09/18 00:31 Hydrocodone Bitart ([place] (10)) Procedures/MDM EKG: Rate/Rhythm: [Normal Sinus Rhythm] QRS, ST, T-waves: [No changes consistent w/ acute ischemia] Impression: [No evidence of ischemia or arrhythmia] Chest X-ray 1V Interpreted by me: Soft Tissue: No acute abnormalities Bones: No acute abnormalities Mediastinum/Cardiac Silhouette/Lungs: [No acute abnormalities] X-ray Pelvis 1V Interpreted by me: Bones: [No fracture] Joints: [No dislocation] Foreign body: [None] Medical decision makin-year-old female with hyponatremia this been repleted here with normal saline. Family feels comfortable taking patient home as she is stage IV under considering hospice at this point. Patient is well-appearing and feels better. At this point is clinically stable will discharge home. Departure Diagnosis: Primary Impression: Acute weakness Condition: Stable Patient Instructions: Hyponatremia ARPAN IVERSON Oct 09, 2018 00:53
[2018-10-09 01:02] VITALS: BP 118/61; PULSE 74; RESP 21
== END 2018-10-09 01:02 | disposition home or self-care (01) ==
LOC: E/R 22:36
DX: R53.1 Weakness (principal); I10 Essential (primary) hypertension; Z85.43 Personal history of malignant neoplasm of ovary
CPT/HCPCS: 36415; 71045; 72170; 80053; 83880; 84484; 85025; 93005; J7030; Z7502; Z7610

== ENCOUNTER 2018-10-22 13:45 | Emergency (ER) | payer OTHER ==
[~2018-10-22] VITALS: Ht 157.5 cm; Wt 54.5 kg
[~2018-10-22 13:45] MED LIST changes: +LEVO750T25 PO
[2018-10-22 13:58] VITALS: Ht 157.5 cm; Wt 54.5 kg
[2018-10-22] MEDS ORDERED: ASPIRIN 81 MG TAB PO STA (14:55)
[2018-10-22] MEDS ORDERED: NITROGLYCERIN 2% 1 GM OINT PKT TD STA (14:55)
[2018-10-22] MEDS ORDERED: FUROSEMIDE 40 MG INJ IV STA (14:55)
[2018-10-22] MEDS ORDERED: NITROGLYCERIN (SL) 0.4 MG TAB SL PRN (15:00)
[2018-10-22] MEDS ORDERED: LIDOCAINE 1% (MPF) 5 ML VIAL ONE ×2 (16:35→17:14)
[2018-10-22 19:56] VITALS: BP 136/59; PULSE 91; RESP 16
== END 2018-10-22 19:59 | disposition home or self-care (01) ==
LOC: E/R 13:45
DX: J90 Pleural effusion, not elsewhere classified (principal); I11.0 Hypertensive heart disease with heart failure; I50.9 Heart failure, unspecified; R18.8 Other ascites; Z85.43 Personal history of malignant neoplasm of ovary
CPT/HCPCS: 32554; 49083; 71045; 76942; 80048; 84484; 85025; 85610; 85730; 93005; Z7502; Z7610